=== PATIENT | male | born 1955 | race Caucasian/White ===

== ENCOUNTER 2022-11-13 16:19 | Inpatient (IN) ==
[2022-11-13] MEDS ORDERED: Patient's ALLERGY Info needs ENTERED SCH (16:45)
[2022-11-13] MEDS ORDERED: Patient's HEIGHT &/or WEIGHT Needed SCH (16:45)
--- NOTE | 2022-11-13 16:57 | XRay Report ---
XR chest 1V portable CLINICAL HISTORY: Sepsis TECHNIQUE: Single frontal radiograph of the chest was obtained. Comparison: None available at the time of this dictation. FINDINGS: No lines and tubes are seen. The cardiomediastinal silhouette is normal. The lungs are clear. No evid ence of pleural effusion or pneumothorax. IMPRESSION: No acute abnormalities and in particular no evidence of pneumonia. ACT 112: Negative or not required by law. Electronically signed by: Swapnil Proctor M.D. 11/13/2022 4:56 PM
[2022-11-13] MEDS ORDERED: DAPTOmycin 675 MG in SYRINGE 0 ML IV ONE (17:00)
[2022-11-13] MEDS ORDERED: PIPERACILLIN/TAZOBACTAM 4.5 GM/120 ML BAG IV ONE (17:00)
--- NOTE | 2022-11-13 17:07 | Emergency Department Note ---
Impression & Plan Osteomyelitis, Cellulitis, Leukocytosis, Anemia ED Provider Note NAME: DYLAN MARIE AGE: 67 SEX: M : 1955 ARRIVES VIA: Walk-In INFORMANT: [Patient] ED PROVIDER(S): [Osmel Perez MD] CHIEF COMPLAINT: Wound infection HISTORY OF PRESENT ILLNESS: The patient is a 67-year-old male who states that he had his left fifth toe amputated about 3 years ago. He has had ongoing issues with infection and healing since. The patient is currently seeing an orthopedist from the [facility]. He was on a wound VAC up until 2 weeks ago. He was on antibiotics previously but the last antibiotics prescribed were about a year ago. Patient has had some chills, no fever. He does have pain in the left foot that is moderate in severity. The pain is worse to walk. In the last week, the patient has had increasing drainage, discomfort and pain. He has also noticed some left lower leg erythema. He presents for evaluation. REVIEW OF SYSTEMS: See HPI for pertinent positives and negatives. A total of ten systems were reviewed and were otherwise negative. PMHx/PSHx: See Below SOCIAL HISTORY: See Below. PHYSICAL EXAM: GENERAL: Patient is in no acute distress. HEENT: No acute trauma, normocephalic atraumatic, mucous membranes moist, no nasal congestion, no scleral icterus. NECK: No stridor, no adenopathy, no meningismus, trachea is midline. LUNGS: Clear to auscultation bilaterally, no wheeze, no rhonchi, breath sounds equal. HEART: Without murmurs gallops or rubs, regular rate and rhythm. ABDOMEN: Soft, nontender, bowel sounds positive, no peritonitis. Obese. EXTREMITIES: No cyanosis. The patient does have a left leg edema when compared to the right. There is some erythema and warmth to the distal left leg especially along the lateral aspect. Patient has a large open area to the lateral left foot. There is a foul odor and some dark discharge seen. The wound is around 8 or so centimeters in diameter and does extend quite deep into the tissue of the foot. Surrounding erythema is seen. NEUROLOGIC: Oriented x 3, no acute motor or sensory deficits, no focal weakness. SKIN: No jaundice, no diaphoresis. DIFFERENTIAL DIAGNOSIS: Sepsis, bacteremia, cellulitis, osteomyelitis, DVT, electrolyte imbalance, anemia, MRSA, failed outpatient management, among others. EMERGENCY DEPARTMENT COURSE/PROCEDURES: ECG: Indication was possible sepsis. The ECG shows a normal sinus rhythm with a rate of 85. There is no ST elevation, no PVCs. There is a potential old inferior infarct noted. QTC is 478. Continuous Cardiac Monitoring: An order was placed for continuous cardiac monitoring. The monitor shows a rate of 85 with normal sinus rhythm. Critical Care Note: I have personally spent 42 minutes of critical care time in the direct management of this patient. This includes bedside care, interpretation of diagnostic studies, and testing, discussion with consultants, patient, and family members, and other required patient management activities. This 42 minutes is in excess of all separately billable procedures. MEDICAL DECISION MAKING: There is a moderate leukocytosis, this is consistent with infection. The patient is anemic with a hemoglobin of around 10, I have no old values to use for comparison. Platelet count was normal. No coagulopathy. No renal failure or significant electrolyte abnormality. Lactic acid level was not elevated making severe sepsis less likely. No worrisome liver enzyme elevation. ECG shows a normal sinus rhythm, no ischemia. Cardiac enzyme testing x1 is not consistent with acute cardiac injury. Procalcitonin level is not significantly elevated. COVID test returned negative. Left foot CT does show potential osteomyelitis and cellulitis. Chest x-ray does not show pneumonia or CHF. Left lower extremity ultrasound is currently pending. The patient was treated for the possibility of sepsis/osteomyelitis. He was given daptomycin IV and Zosyn IV. A culture of the drainage from the left foot wound was obtained and sent for analysis. The patient is in need of a hospital stay. He has osteomyelitis, cellulitis. The left foot has a foul odor. He has a leukocytosis. He appears to be failing outpatient management. I did speak with the patient and case management, the on-call hospitalist has been consulted. Past Med/Surg History Medical History Diabetes mellitus Social History Smoking Status: Never smoker Preferred Language: Belizean Feels Safe at Home: Yes Allergies Allergies Allergy/AdvReac Type Severity Reaction Status Date / Time Penicillins Allergy Mild Hives Verified 11/13/22 16:48 Results & Data (ED) Vital Signs Vital Signs - 24 hr 11/13/22 16:22 11/13/22 17:38 11/13/22 17:15 Temperature 37.4 C Temperature Source Temporal Artery Scan Pulse Rate 85 77 Pulse Rate from SpO2 Sensor Respiratory Rate 22 17 Blood Pressure 191/85 H Blood Pressure Mean 120 Pulse Oximetry 95 96 Oxygen Delivery Method Room Air Room Air Sepsis Recent Fever Within 48 Hours No Sepsis New/Unexplained Change in Mental Status No Sepsis Action Taken by Nursing No Action Required 11/13/22 17:20 11/13/22 17:35 Temperature Temperature Source Pulse Rate 82 83 Pulse Rate from SpO2 Sensor 83 Respiratory Rate 25 H 17 Blood Pressure 171/78 H Blood Pressure Mean 109 Pulse Oximetry 96 Oxygen Delivery Method Sepsis Recent Fever Within 48 Hours Sepsis New/Unexplained Change in Mental Status Sepsis Action Taken by [facility] Medications Current Medication List: was personally reviewed by me Laboratory Data Attestation: I reviewed the patient's lab results. Result diagrams: 11/13/22 17:15 11/13/22 17:15 Lab Results 11/13/22 11/13/22 11/13/22 Range/Units 17:15 17:15 17:15 WBC 14.09 H (4.8-10.8) K/ul RBC 3.65 L (4.63-6.08) M/uL Hgb 9.9 L (14.0-18.0) g/dl Hct 30.3 L (40.1-51.0) % MCV 83.0 (80.0-100.0) fL MCH 27.1 (25.0-34.0) pg MCHC 32.7 (32.0-36.0) g/dL RDW Std Deviation 39.5 (36.4-46.3) fL RDW Coeff of Fauzia 13.1 (11.5-14.5) % Plt Count 271 (130-400) K/uL MPV 9.3 L (9.4-12.4) fL Immature Gran % (Auto) 0.6 % Neut % (Auto) 77.5 % Lymph % (Auto) 9.3 % [place] % (Auto) 11.4 % Eos % (Auto) 0.8 % Baso % (Auto) 0.4 % Neut # (Auto) 10.92 H (1.4-6.5) K/uL Lymph # (Auto) 1.31 (1.2-3.4) K/uL [place] # (Auto) 1.61 H (0.24-0.82) K/uL Eos # (Auto) 0.11 (0-0.50) K/uL Baso # (Auto) 0.05 (0-0.2) K/uL Immature Gran # (Auto) 0.09 H (0.00-0.02) K/uL PT 11.1 (9.0-12.0) Seconds INR 1.0 (0.9-1.1) APTT 22.7 (21.0-31.0) Seconds PTT Ratio 0.8 Sodium 138 (136-145) mmol/L Potassium 3.8 (3.5-5.1) mmol/L Chloride 104 (98-107) mmol/L Carbon Dioxide 27 (21-32) mmol/L Anion Gap 7 (3-11) BUN 22 (6-23) mg/dl Creatinine 1.17 (0.6-1.4) mg/dl Est Cr Clr Drug Dosing 97.3 ml/min Est GFR ( Amer) 74.3 ml/min Est GFR (Non-Af Amer) 64.1 ml/min BUN/Creatinine Ratio 18.8 (10-20) Glucose 171 H (70-99(Fasting)) mg/dl Lactate (0.4-2.0) mmol/L Calcium 8.1 L (8.5-10.1) mg/dl Magnesium 1.9 (1.7-2.4) mg/dl Total Bilirubin 1.5 H (0.2-1.0) mg/dl Direct Bilirubin 0.3 H (0-0.2) mg/dl AST 11 L (13-39) U/L ALT 13 (7-52) U/L Alkaline Phosphatase 84 (34-104) U/L Troponin I High Sens 5.8 (0-20) pg/ml Total Protein 7.1 (6.0-8.3) gm/dl Albumin 3.3 L (3.4-5.0) gm/dl Procalcitonin (0-0.5) ng/ml SARS-CoV-2, RNA, NAAT (NEGATIVE) 12/22/22 12/22/22 12/22/22 Range/Units 17:15 17:15 17:15 WBC (4.8-10.8) K/ul RBC (4.63-6.08) M/uL Hgb (14.0-18.0) g/dl Hct (40.1-51.0) % MCV (80.0-100.0) fL MCH (25.0-34.0) pg MCHC (32.0-36.0) g/dL RDW Std Deviation (36.4-46.3) fL RDW Coeff of Fauiza (11.5-14.5) % Plt Count (130-400) K/uL MPV (9.4-12.4) fL Immature Gran % (Auto) % Neut % (Auto) % Lymph % (Auto) % [place] % (Auto) % Eos % (Auto) % Baso % (Auto) % Neut # (Auto) (1.4-6.5) K/uL Lymph # (Auto) (1.2-3.4) K/uL [place] # (Auto) (0.24-0.82) K/uL Eos # (Auto) (0-0.50) K/uL Baso # (Auto) (0-0.2) K/uL Immature Gran # (Auto) (0.00-0.02) K/uL PT (9.0-12.0) Seconds INR (0.9-1.1) APTT (21.0-31.0) Seconds PTT Ratio Sodium (136-145) mmol/L Potassium (3.5-5.1) mmol/L Chloride (98-107) mmol/L Carbon Dioxide (21-32) mmol/L Anion Gap (3-11) BUN (6-23) mg/dl Creatinine (0.6-1.4) mg/dl Est Cr Clr Drug Dosing ml/min Est GFR ( Amer) ml/min Est GFR (Non-Af Amer) ml/min BUN/Creatinine Ratio (10-20) Glucose (70-99(Fasting)) mg/dl Lactate 1.4 (0.4-2.0) mmol/L Calcium (8.5-10.1) mg/dl Magnesium (1.7-2.4) mg/dl Total Bilirubin (0.2-1.0) mg/dl Direct Bilirubin (0-0.2) mg/dl AST (13-39) U/L ALT (7-52) U/L Alkaline Phosphatase (34-104) U/L Troponin I High Sens (0-20) pg/ml Total Protein (6.0-8.3) gm/dl Albumin (3.4-5.0) gm/dl Procalcitonin 0.17 (0-0.5) ng/ml SARS-CoV-2, RNA, NAAT NEGATIVE (NEGATIVE) Administered Medications Discontinued Medications Piperacillin Sod/Tazobactam Sod (Zosyn) 4.5 gm in 120 mls @ 240 mls/hr IV NOW ONE Stop: 11/13/22 17:29 Last Infusion: 11/13/22 17:59 Dose: 0 mls/hr Documented By: Admin: 11/13/22 17:20 Dose: 240 mls/hr Documented By: RONAK Daptomycin 675 mg/ Syringe 13.5 mls @ 6.75 mls/min IV NOW ONE; Protocol Stop: 11/13/22 17:01 Last Admin: 11/13/22 17:19 Dose: 6.75 mls/min Documented By: RONAK Imaging Data Radiologist's Impression: Foot CT 11/13/22 16:39 CT foot LT wo con CLINICAL HISTORY: osteomyelitis TECHNIQUE: Multidetector row helical CT of the left foot was performed without intravenous contrast. Coronal and sagittal reformations were obtained. Automated dose lowering techniques and/or adjustment according to patient size were utilized for this examination. CT DOSE: 211.06 mGy.cm Comparison: None available at the time of this dictation. FINDINGS: Extensive soft tissue swelling and subcutaneous emphysema is seen with an ulcer in the lateral soft tissues of the foot. There is exposed bone at the level of the fifth metatarsal which has been partially resected. Subcutaneous emphysema is seen. Extensive degenerative changes are seen with fragmentation of the fifth metatarsal IMPRESSION: Extensive degenerative changes and postsurgical changes of fifth metatarsal pa rtial resection. There is fragmentation of the remaining portion of the fifth metatarsal. This may be seen in osteomyelitis although there is no focal erosion. Extensive cellulitis and ulcer to the level of the bone in the lateral foot. Subcutaneous emphysema. ACT 112: Negative or not required by law. Electronically signed by: Swapnil Proctor M.D. 11/13/2022 6:09 PM Chest X-Ray 11/13/22 16:40 XR chest 1V portable CLINICAL HISTORY: Sepsis TECHNIQUE: Single frontal radiograph of the chest was obtained. Comparison: None available at the time of this dictation. FINDINGS: No lines and tubes are seen. The cardiomediastinal silhouette is normal. The lungs are clear. No evidence of pleural effusion or pneumothorax. IMPRESSION: No acute abnormalities and in particular no evidence of pneumonia. ACT 112: Negative or not required by law. Electronically signed by: Swapnil Proctor M.D. 11/13/2022 4:56 PM Discharge Plan Visit Data Chief Complaint: Infection, Wound Stated Complaint: LEFT FOOT WOUND, POSSIBLE INFECTION ED Provider: Osmel Perez Discharge Problem: Osteomyelitis, Cellulitis, Leukocytosis, Anemia Patient Disposition: Admitted As Inpatient Condition: Fair Forms Stand Alone Forms: My [facility] Referrals Referrals: Abril Ayers DO [Primary Care Provider] -
[2022-11-13 17:27] LABS: Basophils # (auto) 0.05 K/uL (0-0.2); Basophils % (auto) 0.4 %; Eosinophils # (auto) 0.11 K/uL (0-0.50); Eosinophils % (auto) 0.8 %; Hematocrit (blood only) 30.3 % (40.1-51.0); Hemoglobin 9.9 g/dl (14.0-18.0); Immature Granulocytes # (auto) 0.09 K/uL (0.00-0.02); Immature Granulocytes % (auto) 0.6 %; Lymphocytes # (auto) 1.31 K/uL (1.2-3.4); Lymphocytes % (auto) 9.3 %; Mean Corpuscular Hemoglobin 27.1 pg (25.0-34.0); Mean Corpuscular Hgb Conc 32.7 g/dL (32.0-36.0); Mean Platelet Volume 9.3 fL (9.4-12.4); Monocytes # (auto) 1.61 K/uL (0.24-0.82); Monocytes % (auto) 11.4 %; Neutrophils # (auto) 10.92 K/uL (1.4-6.5); Neutrophils % (auto) 77.5 %; Platelet Count 271 K/uL (130-400); RDW Coefficient of Variation 13.1 % (11.5-14.5); RDW Standard Deviation 39.5 fL (36.4-46.3); Red Blood Count 3.65 M/uL (4.63-6.08); White Blood Count 14.09 K/ul (4.8-10.8)
[2022-11-13 17:40] LABS: Partial Thromboplastin Ratio 0.8; Partial Thromboplastin Time 22.7 Seconds (21.0-31.0); Prothrombin Time 11.1 Seconds (9.0-12.0)
[2022-11-13 17:45] LABS: Albumin Level 3.3 gm/dl (3.4-5.0); BUN Creatinine Ratio 18.8 (10-20); Bilirubin Direct 0.3 mg/dl (0-0.2); Bilirubin,Total 1.5 mg/dl (0.2-1.0); Calcium 8.1 mg/dl (8.5-10.1); Creatinine Clr Calc Pharmacy 97.3 ml/min; Est GFR (African American) 74.3 ml/min; Est GFR (Non-African American) 64.1 ml/min; Magnesium 1.9 mg/dl (1.7-2.4); Potassium 3.8 mmol/L (3.5-5.1); Total Protein 7.1 gm/dl (6.0-8.3)
[2022-11-13 17:51] LABS: Troponin I High Sensitivity 5.8 pg/ml (0-20)
--- NOTE | 2022-11-13 18:12 | CT Scan Report ---
CT foot LT wo con CLINICAL HISTORY: osteomyelitis TECHNIQUE: Multidetector row helical CT of the left foot was performed without intravenous contrast. Coronal and sagittal reformations were obtained. Automated dose lowering techniques and/or adjustment according to patient size were utilized for this examination. CT DOSE: 211.06 mGy.cm Comparison: None available at the time of this dictation. FINDINGS: Extensive soft tissue swelling and subcutaneous emphysema is seen with an ulcer in the lateral soft t issues of the foot. There is exposed bone at the level of the fifth metatarsal which has been partial ly resected. Subcutaneous emphysema is seen. Extensive degenerative changes are seen with fragmentati on of the fifth metatarsal IMPRESSION: Extensive degenerative changes and postsurgical changes of fifth metatarsal partial resection. There is fragmentation of the remaining portion of the fifth metatarsal. This may be seen in osteomyelitis although there is no focal erosion. Extensive cellulitis and ulcer to the level of the bone in the la teral foot. Subcutaneous emphysema. ACT 112: Negative or not required by law. Electronically signed by: Swapnil rPoctor M.D. 11/13/2022 6:09 PM
--- NOTE | 2022-11-13 19:18 | History & Physical Report ---
Date of Service November 13, 2022 Assessment & Plan (1) Cellulitis: Plan: -L foot CT showed extensive cellulitis with possible osteomyelitis and subcutaneous emphysema. -Patient's CT and physical exam is most concerning for a severe cellulitis with osteomyelitis. -Will continue on Daptomycin and Zosyn. Due to h/o uncontrolled DM in the past, want to keep coverage for pseudomonas at this time. -Blood and wound cultures are pending. Though infection does not appear systemic at this time and more localized. -Venous and arterial duplex US of the L LE are pending. -Sed and CRP ordered for the AM. -leukocytosis of 14 in the ED. Will continue to monitor in daily labs. -Tylenol 650mg Q4H prn for pain. -Orthopedic surgery consulted for evaluation (2) Osteomyelitis: Plan: -as above (3) Anemia: Plan: -Hgb 9.9 with MCV 83 in the ED without any previous studies to look at. -iron panel and ferritin pending -Will continue to monitor with morning labs. (4) Diabetes mellitus: Plan: - Patient's home regimen held on admission - Continue BSG checks, sliding-scale insulin, hypoglycemic protocol - Will get HA1C on admission. (5) HTN (hypertension): Plan: -Continue at home amlodipine 10mg QDay, atenolol 50mg QDay, minoxidil 2.5mg BID, and furosemide 40mg QDay (6) HLD (hyperlipidemia): Plan: -Continue home simvastatin 20mg QPM (7) GERD (gastroesophageal reflux disease): Plan: -Continue home omeprazole 20mg QD. (8) BPH (benign prostatic hyperplasia): Plan: Continue home doxazosin 8mg HS, and tamsulosin 0.8mg QD. Plan Fluids: none Nutrition: DM2, NPO after midnight Code status: full code DVT ppx: Lovenox Consults: ortho surgery Dispo: med/surg Thank you for allowing me to participate in the care of your patient. -Dr. Osmel Aleman PGY1 History of Present Illness Chief Complaint: Cellulitis with osteomyelitis of L LE Primary Care Provider: Abril Ayers DO Patient is a 67 y/o male who presents to the hospital with L LE wound. He has been following with [facility] in [place] with wound care about this for the past 3 years since his L fifth toe was amputated due to poorly controlled diabetes. He was on a wound VAC 2 weeks ago. He states over the past week the wound has gotten worse and has become painful and increase in drainage. the pain is worse when ambulating. He denies any antibiotic use for the past year. He denies any fevers, chills, vomiting, or ab pain. He does state that he had a little bit of nausea today for the first time. PMHx: DM2, HTN, HLD, GERD, BPH PSx: Gallbladder removed, L fifth toe amputated (2018?), R toe amputated (2019?) All: penicillin (hives)- doesn't remember them, was younger in the ED: CXR negative, L foot CT showed extensive cellulitis with possible osteomyelitis and subcutaneous emphysema. CBC showed a leukocytics of 14, hgb 9.9, 83 MCV. CMP unremarkable. Normal procal, troponin, Mg, and PT/INR. Wound and blood cultures pending. Allergies Allergy/AdvReac Type Severity Reaction Status Date / Time Penicillins Allergy Mild Hives Verified 11/13/22 16:48 Home Medications Medication Instructions Recorded Confirmed Type amlodipine 10 mg tablet 10 mg PO DAILY 11/13/22 11/13/22 History atenolol 50 mg tablet 50 mg PO DAILY 11/13/22 11/13/22 History doxazosin 4 mg tablet 8 mg PO HS 11/13/22 11/13/22 History furosemide 40 mg tablet 40 mg PO DAILY 11/13/22 11/13/22 History insulin glargine 100 unit/mL (3 70 unit subcut HS 11/13/22 11/13/22 History mL) subcutaneous pen (Lantus Solostar U-100 Insulin) irbesartan 300 mg tablet 300 mg PO DAILY 11/13/22 11/13/22 History metformin 1,000 mg tablet 1,000 mg PO BID 11/13/22 11/13/22 History minoxidil 2.5 mg tablet 2.5 mg PO BID 11/13/22 11/13/22 History omeprazole 20 mg capsule,delayed 20 mg PO DAILY 11/13/22 11/13/22 History release simvastatin 20 mg tablet 20 mg PO HS 11/13/22 11/13/22 History tamsulosin 0.4 mg capsule 0.8 mg PO DAILY 11/13/22 11/13/22 History Past Med/Surg History Medical History BPH (benign prostatic hyperplasia) Diabetes mellitus GERD (gastroesophageal reflux disease) HLD (hyperlipidemia) HTN (hypertension) Surgical History History of amputation of toe Family History (Updated 11/13/22 @ 23:42 by Irma Sandra MD) Other Family history non-contributory Social History Smoking Status: Never smoker Preferred Language: Czech Feels Safe at Home: Yes Review of Systems Review of Systems: All systems reviewed & are unremarkable except as noted in HPI & below Physical Exam Constitutional: WD/WN, vitals as above Eyes: PERRL, conjunctivae normal, anicteric sclerae ENMT: external ear and nose normal, oropharynx normal Respiratory: normal respiratory effort, lungs clear to auscultation Cardiovascular: Rate/Rhythm: regular rate and regular rhythm Gastrointestinal (Abdomen): normal bowel sounds, soft, nontender, no hepatospl enomegaly Musculoskeletal: L LE erythema, warmth, and edematous. Open wound with foul odor and discharge on the distal left lateral footthat extends deep into the skin with surrounding erythema Psychiatric: A+Ox3, euthymic affect Results & Data Results & Data (MN) Vital Signs (Past 12 Hours) Vital Signs Temp Pulse Resp BP Pulse Ox O2 Del Method 11/13/22 17:35 83 17 171/78 H 96 11/13/22 17:20 82 25 H 11/13/22 17:15 77 17 11/13/22 17:38 96 Room Air 11/13/22 16:22 37.4 C 85 22 191/85 H 95 Room Air Supervising Physician Co-Signing Physician Notes I personally examined the patient and verified all woodard points of history and exam, discussed case, and agree with decision making with Dr. Aleman with the following additions/exceptions: S-this patient is a 67-year-old male with history of DM2, with neuropathy, HTN, BPH, hyperlipidemia, obesity, who presents to the ER with worsening redness to the left leg with no large open wound on the left lateral foot that is draining more purulent fluid than usual. He has not been on antibiotics for quite some time but recently had a wound VAC removed from the foot. None of the records from his past medical history are available at time of admission. He denies fevers or chills. He has had some nausea and low appetite but no vomiting. No abdominal pains or diarrhea. Does have some pain but for the most part cannot feel his foot. He denies any chest pains or shortness of breath. History and ROS reviewed otherwise as above O- Vitals reviewed Gen: [AAOx3, obese, NAD] HEENT: Anicteric sclerae, EOMI, CV: RRR no mgr nl S1S2 Pulm: CTAB no wcr has left foot cellulitis and osteomyelitis Abd: +BS soft NT ND no masses or hernias Ext:, 1+ dorsalis pedis pulse on the right, unable to palpate DP pulse on left through the 3+ edema of the foot, breath left lower extremity with 3+ pitting edema, right lower extremity with 2+ woody edema Skin: Dry thickened scaly skin on legs bilaterally, erythema of left entire anterior leg; large open wound left lateral foot approximately 10 cm in diameter, w/necrotic tissue, purulent drainage, exposed bone Neuro: [full strength throughout,decreased sensation to light touch in stocking glove distribution of feet/distal legs bilat Labs, Rads reviewed A/[id number]-old male with history here as above, with left foot OM and cellulitis with large diabetic foot ulcer. Check arterial dopplers, venous doppler LLE Consult Ortho-will likely need foot debridement but await Ortho consult continue broad spectrum antibiotics and follow cultures Resident Activity Tracking Resident Involvement: Resident Care Provided Care Provided: Adult Hospital Medicine (1) Anemia Anemia type: unspecified type Qualified Code(s): D64.9 - Anemia, unspecified (2) Cellulitis Laterality: left Site of cellulitis: extremity Site of cellulitis of extremity: lower extremity Qualified Code(s): L03.116 - Cellulitis of left lower limb (3) Osteomyelitis Laterality: left Osteomyelitis location: foot Osteomyelitis type: unspecified type Qualified Code(s): M86.9 - Osteomyelitis, unspecified
--- NOTE | 2022-11-13 21:03 | Ultrasound Report ---
US venous doppler LE LT CLINICAL HISTORY: swelling TECHNIQUE: Left lower extremity real-time compression venous ultrasound with Color Doppler imaging. U tilizing real-time ultrasonic imaging multiple real time high-resolution ultrasonic images with compr ession and noncompression maneuvers of the deep venous system in addition to color doppler imaging we re performed from the common femoral vein through the proximal calf veins. COMPARISON: Comparison is made to CT left foot 11/13/2022 FINDINGS: Currently there is normal compressibility of the deep venous system from the common femoral vein thro ugh the proximal calf veins. Evaluation of the calf veins is limited by overlying soft tissue swelli ng. Impression: No evidence of deep venous thrombus. ACT 112: Negative or not required by law. Electronically signed by: Swapnil Proctor M.D. 11/13/2022 9:01 PM
--- NOTE | 2022-11-13 21:07 | Ultrasound Report ---
US arterial duplex LE LT CLINICAL HISTORY: L foot cellulitis with osteomyelitis TECHNIQUE: Real-time grayscale and color and spectral Doppler ultrasound imaging of the bilateral low er extremity arteries was performed. Measurements calculated based on NASCET criteria. COMPARISON: None available at the time of this dictation. FINDINGS: LEFT: Common femoral artery: Triphasic waveforms. Peak systolic velocity (PSV) 1 cm/s. Deep femoral artery: Triphasic waveforms. PSV 101 cm/s. Superficial femoral artery: Monophasic waveforms. PSV 337 cm/s. Popliteal artery: Monophasic waveforms. PSV 153 cm/s. Anterior tibial artery: Monophasic waveforms. PSV 282 cm/s. Posterior tibial artery: Monophasic waveforms. PSV 362 cm/s. Peroneal artery: Nonvisualized Dorsalis pedis: Monophasic waveforms. PSV 336 cm/s. Increased velocities are seen throughout the left lower extremity. Monophasic flow extends from the m id superficial femoral artery to the calf. The peroneal artery is not visualized due to soft tissue s welling and body habitus. IMPRESSION: Monophasic waveforms and increased velocities are noted in the superficial femoral artery and the art eries of the calf. Soft tissue swelling is seen. The peroneal artery is not visualized. Findings are compatible with hemodynamically significant peripheral artery disease. ACT 112: Negative or not required by law. Electronically signed by: Swapnil Proctor M.D. 11/13/2022 9:05 PM
[2022-11-13] MEDS ORDERED: GLUCAGON FOR INJ 1 MG VIAL SQ PRN (21:25)
[2022-11-13] MEDS ORDERED: SIMVASTATIN 20 MG TAB PO SCH (21:25)
[2022-11-13] MEDS ORDERED: CARBOHYDRATES FOR HYPOGLYCEMIA PO PRN (21:25)
[2022-11-13] MEDS ORDERED: GLUCOSE 10 TAB/TUBE PO PRN (21:25)
[2022-11-13] MEDS ORDERED: DEXTROSE 50% 50 ML SYRINGE IV PRN (21:25)
[2022-11-13] MEDS ORDERED: GLUCOSE 40% GEL 15 GM TUBE PO PRN (21:25)
[2022-11-13] MEDS ORDERED: ACETAMINOPHEN 325 MG TAB PO PRN (21:25)
[2022-11-13] MEDS ORDERED: INSULIN ASPART PER UNIT SC SCH (21:45)
[2022-11-13] MEDS: DOXAZosin MESYLATE 4 MG TAB PO SCH (22:43)
[2022-11-13] MEDS: minoxidiL 2.5 MG TAB PO SCH (22:43)
[2022-11-13] MEDS: ENOXAPARIN INJ 40 MG/0.4 ML SYR SQ SCH (22:44)
[2022-11-13] MEDS: PIPERACILLIN/TAZOBACTAM 4.5 GM in DEXTROSE 5% 100 ML IV SCH (22:44)
[2022-11-13] MEDS: LANTUS PER UNIT CHARGE SQ SCH (22:50)
--- NOTE | 2022-11-13 23:56 | Billing Data ---
Date of Service November 13, 2022 Coding Level of Care Code 19915 Initial Inpt Care Lvl 3
[2022-11-14] MEDS: PIPERACILLIN/TAZOBACTAM 4.5 GM in DEXTROSE 5% 100 ML IV SCH ×3 (06:07→22:28)
[2022-11-14 06:08] LABS: Appearance Urine Clear (Clear); Bacteria Urine Automated Negative (Negative); Bilirubin Urine Negative (Negative); Blood Urine 2+ (Negative); Color Urine Yellow; Glucose Urine UA Negative (Negative); Ketones Urine Negative (Negative); Leukocyte Esterase Urine Negative (Negative); Nitrite Urine Negative (Negative); Protein Urine 3+ (Negative); Specific Gravity Urine 1.015 (1.000-1.030); Urobilinogen Urine Negative (Negative); pH Urine 5.5 (4.5-7.5)
[2022-11-14] MEDS ORDERED: Nursing to Pharmacy Communication SCH ×2 (06:45→17:00)
[2022-11-14] MEDS: INSULIN ASPART PER UNIT SC SCH ×4 (07:46→20:43)
[2022-11-14] MEDS ORDERED: FUROSEMIDE 40 MG TAB PO SCH (09:00)
[2022-11-14] MEDS ORDERED: IRBESARTAN 150 MG TAB PO SCH (09:00)
[2022-11-14] MEDS: amLODIPine BESYLATE 5 MG TAB PO SCH (10:02)
[2022-11-14] MEDS: minoxidiL 2.5 MG TAB PO SCH ×2 (10:02→20:43)
[2022-11-14] MEDS: PANTOprazole 40 MG TAB PO SCH (10:03)
[2022-11-14] MEDS: TAMSULOSIN HCL 0.4 MG CAP PO SCH (10:03)
[2022-11-14] MEDS: ATENOLOL 50 MG TABLET PO SCH (10:04)
[2022-11-14] MEDS: ENOXAPARIN INJ 40 MG/0.4 ML SYR SQ SCH (10:05)
[2022-11-14] MEDS: LANTUS PER UNIT CHARGE SQ SCH ×2 (10:13→20:46)
[2022-11-14 10:49] LABS: Albumin Globulin Ratio 0.9 (0.9-2); Albumin Level 2.9 gm/dl (3.4-5.0); BUN Creatinine Ratio 13.9 (10-20); Bilirubin,Total 1.5 mg/dl (0.2-1.0); C Reactive Protein 16.67 mg/dl (0-0.5); Calcium 8.4 mg/dl (8.5-10.1); Creatinine Clr Calc Pharmacy 88.9 ml/min; Est GFR (African American) 70.7 ml/min; Globulin 3.4 gm/dl (2.5-4.0); Potassium 3.6 mmol/L (3.5-5.1); Total Protein 6.3 gm/dl (6.0-8.3)
[2022-11-14 11:00] LABS: Ferritin 198.1 ng/ml (8-388)
--- NOTE | 2022-11-14 12:34 | Orthopedic Consultation ---
Date of Service November 14, 2022 Assessment & Plan (1) Osteomyelitis: Plan Patient has been unsuccessfully treated for a diabetic foot ulcer with osteomyelitis for quite a while now. He has had multiple rounds of ABX. Symptoms continue to worsen. He recently had a CT scan which suggested osteomyelitis as well as emphysema of the surrounding soft tissue. Recommend MRI of left lower extremity to quantify oeteomylitis and how advanced it is. Keep NPO after midnight. Continue with IV ABX. Will communicate with Dr. Carson later today for possibility for I&D or amputation tomorrow. History of Present Illness Reason for Consultation: . Requesting Physician: . Attending Physician: Irma Sandra MD Patient is a 67 y/o uncontrolled diabetic who has a history of osteomyelitis as well as intermittent cellulitis of both of his lower extremities. He presented to the ER yesterday for moderate to severe left foot pain, swelling, and purulent drainage from a foot ulcer. He states that he has been seeing a wound care doctor in the [place] area who has been treating him for the diabetic ulcer on his left foot. He has had multiple rounds of antibiotics but his infection keeps coming back. He is sitting comfortably in the hospital bed this afternoon. He does describe slight fever, chills, aches. Allergies Allergy/AdvReac Type Severity Reaction Status Date / Time Penicillins Allergy Mild Hives Verified 11/13/22 16:48 Home Medications Medication Instructions Recorded Confirmed Type amlodipine 10 mg tablet 10 mg PO DAILY 11/13/22 11/13/22 History atenolol 50 mg tablet 50 mg PO DAILY 11/13/22 11/13/22 History doxazosin 4 mg tablet 8 mg PO HS 11/13/22 11/13/22 History furosemide 40 mg tablet 40 mg PO DAILY 11/13/22 11/13/22 History insulin glargine 100 unit/mL (3 70 unit subcut HS 11/13/22 11/13/22 History mL) subcutaneous pen (Lantus Solostar U-100 Insulin) irbesartan 300 mg tablet 300 mg PO DAILY 11/13/22 11/13/22 History metformin 1,000 mg tablet 1,000 mg PO BID 11/13/22 11/13/22 History minoxidil 2.5 mg tablet 2.5 mg PO BID 11/13/22 11/13/22 History omeprazole 20 mg capsule,delayed 20 mg PO DAILY 11/13/22 11/13/22 History release simvastatin 20 mg tablet 20 mg PO HS 11/13/22 11/13/22 History tamsulosin 0.4 mg capsule 0.8 mg PO DAILY 11/13/22 11/13/22 History Past Med/Surg History Medical History BPH (benign prostatic hyperplasia) Diabetes mellitus GERD (gastroesophageal reflux disease) HLD (hyperlipidemia) HTN (hypertension) Surgical History History of amputation of toe Family History Other Family history non-contributory Social History Smoking Status: Never smoker Hx Alcohol Use: Yes Hx Substance Use: Yes Last Used Substance: Hours (ago) Preferred Language: Frisian Lens Blocker Required: No Beliefs That Will Affect Care: None Current Living Situation: Alone Feels Safe at Home: Yes Safety Concerns: Feels Safe At This Time Assistive Devices: Cane, Scooter/Electric Scooter and Walker Review of Systems All systems reviewed & are unremarkable except as noted in HPI & below. Physical Exam Large diabetic foot ulceration of the heel of his left foot. Significant erythema of the lower extremity with cutaneous swelling. Purulent drainage expressed from the ulcer. Results & Data Results & Data Laboratory Results . Diagnostic Findings . PG Care Time/CCT Total # of Minutes Spent Total Time Spent with Patient: Total time spent is greater than 50% in coordination of care (as documented) at patient's floor/unit and/or counseling patient: Coding Level of Care Code 47900 Inpt Consult Level 3 Diagnoses Osteomyelitis M86.9 Laterality: left Osteomyelitis location: foot Osteomyelitis type: unspecified type (1) Osteomyelitis Laterality: left Osteomyelitis location: foot Osteomyelitis type: unspecified type Qualified Code(s): M86.9 - Osteomyelitis, unspecified
[2022-11-14 12:54] LABS: Estimated Average Glucose 151 mg/dl; Hemoglobin A1C 6.9 % (4.5-5.6)
--- NOTE | 2022-11-14 14:28 | XRay Report ---
XR tibia fibula LT 2V CLINICAL HISTORY: assess for osteomyelitis TECHNIQUE: 2 radiographic views of the right leg were obtained. Comparison: None available at the time of this dictation. FINDINGS: No evidence of acute fracture or definite erosions to suggest osteomyelitis. Degenerative changes are seen most prominently in the knee joint. Plantar and Achilles enthesophytes are seen. Soft tissue sw elling is seen. IMPRESSION: Soft tissue swelling without radiographic evidence of osteomyelitis. ACT 112: Negative or not required by law. Electronically signed by: Swapnil Proctor M.D. 11/14/2022 2:27 PM
--- NOTE | 2022-11-14 17:27 | Progress Notes ---
DATE OF NOTE: 11/14/2022 SUBJECTIVE: A 67-year-old gentleman admitted with persistent left heel ulcer with cellulitis. Patirajni ratliff has a 3-year history of persistent left foot ulcer, which has been unresponsive to conservative ca re. He was recently admitted here to the hospital with cellulitis and persistent ulcer. We were con sulted for evaluation. He says this has been present for 3 years. He has had difficulty walking and getting around as a result. It does not really hurt. OBJECTIVE: VITAL SIGNS: Temperature 37.1. Vital signs are stable. GENERAL: Shows a pleasant middle-aged male. He is sitting up in bed and looks quite comfortable. EXTREMITIES: Examination of the left leg reveals a fairly large soft tissue envelope. It is well al igned. He has got a bandage on his foot with a full-thickness ulcer of the foot. There is some surr ounding cellulitis. There is some slight purulent drainage. He can dorsiflex and plantarflex his fo ot appropriately. He does have some chronic venous stasis changes. Some mild cellulitis ascending p roximally. X-RAYS: X-rays of his tib-fib were reviewed from today. It shows some mild arthritis. He has got s ome vascular calcifications. Some diffuse edema. No signs of bone destruction or osteomyelitis of t he tibia or fibula. X-rays of the foot revealed destructive changes. ASSESSMENT: A 67-year-old male with longstanding diabetes and a 3-year history of a left chronic ful l thickness of foot ulcer with underlying infection. This is not healed for 3 years and is not going to heal. Treatment options were explained to the patient including continued suppression with the w ound management, intermittent antibiotics as needed versus a below-knee amputation. PLAN: After extensive discussion, we have decided to proceed with below-knee amputation. The risks and benefits of this procedure were explained to the patient. There is a chance that even a below-kn ee amputation will not heal, but I think it will most likely. In any case, I think it is worth a try considering the energy expended with a difference with above-knee amputation. There is nothing short of an amputation is going to heal this gentleman's leg. I explained that to him and he would like t o proceed. We will plan on doing this tomorrow. Keep him n.p.o. after midnight. Job ID: [id number]
[2022-11-14] MEDS: DAPTOmycin 675 MG in SYRINGE 0 ML IV SCH (18:13)
--- NOTE | 2022-11-14 18:29 | Hospitalist Progress Note ---
Date of Service November 14, 2022 Assessment & Plan (1) Cellulitis: Plan: Presents with 3 years of non-healing left foot wound after 5th toe amputation Had a wound vac and multiple rounds of abx over the years. Here with leukocytosis, no fevers, elevated ESR 80, CRP 16.6 Wound culture growing GNR thus far BCxs-NGTD L foot CT showed extensive cellulitis with possible osteomyelitis and subcutaneous emphysema. Venous Doppler LLE no DVT Arterial Doppler with monophasic flow through SFA Monophasic waveforms and increased velocities are noted in the superficial femoral artery and the arteries of the calf. Soft tissue swelling is seen. The peroneal artery is not visualized. Findings are compatible with hemodynamically significant peripheral artery disease. Patient's CT and physical exam is most concerning for a severe cellulitis with osteomyelitis in setting of PAD No occlusion of LLE arteries so no Vascular eval needed Appreciate Orthopedics consultation -plan for BKA tomorrow -continue on Daptomycin and Zosyn. Due to h/o uncontrolled DM in the past, want to keep coverage for pseudomonas at this time. -check baseline CK in AM while on Dapto -Follow Blood Cxs-NGTD -follow final wound culture-GNR -tylenol for pain -CBC, BMP, ESR, CRP in AM -NPO after midnight for surgery He is medically optimized for this intermediate risk procedure and is at average perioperative CV risk. (2) Osteomyelitis: Plan: -as above (3) Anemia: Plan: -Hgb 9.9 with MCV 83 in the ED without any previous studies for comparison Fe studies show iron deficiency with transferrin saturation low at 10%, ferritin elevated but likely as acute phase reactant -give Venofer 300mg IV daily x 3 days -check hemoccult stool -will need further outpt GI workup after recovery from amputation if has not already had this ie EGD,colonoscopy (4) Diabetes mellitus: Plan: - Patient's home regimen held on admission - Continue BSG checks, sliding-scale insulin, hypoglycemic protocol glucose here well controlled HgbA1C 6.9% (5) HTN (hypertension): Plan: -Continue home amlodipine 10mg QDay, atenolol 50mg QDay, minoxidil 2.5mg BID -hold furosemide 40mg QDay and irbesartan prior to surgery and restart if renal function and BP allow (6) HLD (hyperlipidemia): Plan: -hold home simvastatin 20mg QPM while on Daptomycin (7) GERD (gastroesophageal reflux disease): Plan: -Continue PPI (8) BPH (benign prostatic hyperplasia): Plan: Continue home doxazosin 8mg HS, and tamsulosin 0.8mg QD. monitor for urinary retention (9) PAD (peripheral artery disease): Plan: as noted on arterial Doppler secondary to DMII not a smoker advise higher intensity statin when able to resume statin (when off Daptomycin) and start aspirin 81mg daily Plan DVT proph-add Lovenox after procedure Dispo-continued stay on med surg Admission and Anticipated Discharge Date Admission Date: November 13, 2022 Subjective Pt denies pain. Denies CP, SOB, abd pain, nausea. No BM today but reports he didn't eat all day until dinner. He was advised to have a BKA done by Ortho and is accepting of this but is in a bit of shock. He agrees it is the right thing to do as his foot has not healed now for 3 years. Review of Systems Review of Systems: All systems reviewed & are unremarkable except as noted in HPI & below Physical Exam Constitutional: WD/WN, vitals as above Eyes: + anicteric sclerae ENMT: Ears: no hearing impairment Neck: trachea midline, no thyromegaly Respiratory: normal respiratory effort, lungs clear to auscultation Cardiovascular: Rate/Rhythm: regular rate and regular rhythm Heart Sounds: no murmur Vessels: dorsalis pedis pulses present (weak but palpable bilat) Extremities: + edema (3+ woody edema left leg,2+ right leg) Chest (Breasts): Chest: normal inspection of chest Gastrointestinal (Abdomen): normal bowel sounds, soft, nontender, no hepatosplenomegaly Musculoskeletal: Extremities: + extremities abnormal to inspection (R 2nd toe absent;L foot in dressing not removed today) and no cyanosis Skin: + erythema (mild, left anterior leg) Neurologic: moves all extremities and awake; no focal motor deficits Psychiatric: A+Ox3, euthymic affect Results & Data Results & Data ([facility]) Vital Signs (Past 12 Hours) Vital Signs Temp Pulse Resp BP BP Pulse Ox O2 Del Method 11/14/22 15:28 37.1 C 67 19 166/77 H 96 Room Air 11/14/22 10:09 171/78 H 11/14/22 07:47 37.1 C 71 20 168/89 H 96 Room Air Laboratory Results 11/14/22 11/14/22 11/14/22 Range/Units Unknown 17:51 17:35 ESR (0-20) mm/hr Sodium (136-145) mmol/L Potassium (3.5-5.1) mmol/L Chloride (98-107) mmol/L Carbon Dioxide (21-32) mmol/L Anion Gap (3-11) BUN (6-23) mg/dl Creatinine (0.6-1.4) mg/dl Est Cr Clr Drug Dosing ml/min Est GFR ( Amer) ml/min Est GFR (Non-Af Amer) ml/min BUN/Creatinine Ratio (10-20) Glucose (70-99(Fasting)) mg/dl POC Glucose 149 H (70-99) mg/dl Estimat Average Glucose mg/dl Hemoglobin A1c (4.5-5.6) % Calcium (8.5-10.1) mg/dl Iron (35-175) mcg/dl TIBC (250-450) mcg/dl Unsaturated IBC (155-355) mcg/dl Transferrin % Sat (20-50) % Ferritin (8-388) ng/ml Total Bilirubin (0.2-1.0) mg/dl AST (13-39) U/L ALT (7-52) U/L Alkaline Phosphatase (34-104) U/L C-Reactive Protein (0-0.5) mg/dl Total Protein (6.0-8.3) gm/dl Albumin (3.4-5.0) gm/dl Globulin (2.5-4.0) gm/dl Albumin/Globulin Ratio (0.9-2) Urine Color Yellow Urine Appearance Clear (Clear) Urine pH 5.5 (4.5-7.5) Ur Specific [place] 1.015 (1.000-1.030) Urine Protein 3+ H (Negative) Urine Glucose (UA) Negative (Negative) Urine Ketones Negative (Negative) Urine Blood 2+ H (Negative) Urine Nitrite Negative (Negative) Urine Bilirubin Negative (Negative) Urine Urobilinogen Negative (Negative) Ur Leukocyte Esterase Negative (Negative) Urine WBC (Auto) 1-5 (0-5) /hpf Urine RBC (Auto) 5-10 H (0-4) /hpf U Hyaline Cast (Auto) 1-5 (0-5) /lpf U Epithel Cells (Auto) 5-10 H (0-5) /lpf Urine Bacteria (Auto) Negative (Negative) Hepatitis C Ab (EIA) Hep C Ab Signal/Cutoff Blood Type Pending Antibody Screen Pending 11/14/22 11/14/22 11/14/22 Range/Units 12:32 09:41 09:41 ESR (0-20) mm/hr Sodium (136-145) mmol/L Potassium (3.5-5.1) mmol/L Chloride (98-107) mmol/L Carbon Dioxide (21-32) mmol/L Anion Gap (3-11) BUN (6-23) mg/dl Creatinine (0.6-1.4) mg/dl Est Cr Clr Drug Dosing ml/min Est GFR ( Amer) ml/min Est GFR (Non-Af Amer) ml/min BUN/Creatinine Ratio (10-20) Glucose (70-99(Fasting)) mg/dl POC Glucose 137 H (70-99) mg/dl Estimat Average Glucose 151 mg/dl Hemoglobin A1c 6.9 H (4.5-5.6) % Calcium (8.5-10.1) mg/dl Iron (35-175) mcg/dl TIBC (250-450) mcg/dl Unsaturated IBC (155-355) mcg/dl Transferrin % Sat (20-50) % Ferritin (8-388) ng/ml Total Bilirubin (0.2-1.0) mg/dl AST (13-39) U/L ALT (7-52) U/L Alkaline Phosphatase (34-104) U/L C-Reactive Protein (0-0.5) mg/dl Total Protein (6.0-8.3) gm/dl Albumin (3.4-5.0) gm/dl Globulin (2.5-4.0) gm/dl Albumin/Globulin Ratio (0.9-2) Urine Color Urine Appearance (Clear) Urine pH (4.5-7.5) Ur Specific [place] (1.000-1.030) Urine Protein (Negative) Urine Glucose (UA) (Negative) Urine Ketones (Negative) Urine Blood (Negative) Urine Nitrite (Negative) Urine Bilirubin (Negative) Urine Urobilinogen (Negative) Ur Leukocyte Esterase (Negative) Urine WBC (Auto) (0-5) /hpf Urine RBC (Auto) (0-4) /hpf U Hyaline Cast (Auto) (0-5) /lpf U Epithel Cells (Auto) (0-5) /lpf Urine Bacteria (Auto) (Negative) Hepatitis C Ab (EIA) Pending Hep C Ab Signal/Cutoff Pending Blood Type Antibody Screen 11/14/22 11/14/22 11/14/22 Range/Units 09:41 09:41 05:45 ESR 80 H (0-20) mm/hr Sodium 139 (136-145) mmol/L Potassium 3.6 (3.5-5.1) mmol/L Chloride 106 (98-107) mmol/L Carbon Dioxide 28 (21-32) mmol/L Anion Gap 5 (3-11) BUN 17 (6-23) mg/dl Creatinine 1.22 (0.6-1.4) mg/dl Est Cr Clr Drug Dosing 88.9 ml/min Est GFR ( Amer) 70.7 ml/min Est GFR (Non-Af Amer) 61.0 ml/min BUN/Creatinine Ratio 13.9 (10-20) Glucose 125 H (70-99(Fasting)) mg/dl POC Glucose 139 H (70-99) mg/dl Estimat Average Glucose mg/dl Hemoglobin A1c (4.5-5.6) % Calcium 8.4 L (8.5-10.1) mg/dl Iron 16 L (35-175) mcg/dl TIBC 161 L (250-450) mcg/dl Unsaturated IBC 145 L (155-355) mcg/dl Transferrin % Sat 10 L (20-50) % Ferritin 198.1 (8-388) ng/ml Total Bilirubin 1.5 H (0.2-1.0) mg/dl AST 12 L (13-39) U/L ALT 12 (7-52) U/L Alkaline Phosphatase 77 (34-104) U/L C-Reactive Protein 16.67 H (0-0.5) mg/dl Total Protein 6.3 (6.0-8.3) gm/dl Albumin 2.9 L (3.4-5.0) gm/dl Globulin 3.4 (2.5-4.0) gm/dl Albumin/Globulin Ratio 0.9 (0.9-2) Urine Color Urine Appearance (Clear) Urine pH (4.5-7.5) Ur Specific [place] (1.000-1.030) Urine Protein (Negative) Urine Glucose (UA) (Negative) Urine Ketones (Negative) Urine Blood (Negative) Urine Nitrite (Negative) Urine Bilirubin (Negative) Urine Urobilinogen (Negative) Ur Leukocyte Esterase (Negative) Urine WBC (Auto) (0-5) /hpf Urine RBC (Auto) (0-4) /hpf U Hyaline Cast (Auto) (0-5) /lpf U Epithel Cells (Auto) (0-5) /lpf Urine Bacteria (Auto) (Negative) Hepatitis C Ab (EIA) Hep C Ab Signal/Cutoff Blood Type Antibody Screen 11/13/22 Range/Units 21:25 ESR (0-20) mm/hr Sodium (136-145) mmol/L Potassium (3.5-5.1) mmol/L Chloride (98-107) mmol/L Carbon Dioxide (21-32) mmol/L Anion Gap (3-11) BUN (6-23) mg/dl Creatinine (0.6-1.4) mg/dl Est Cr Clr Drug Dosing ml/min Est GFR ( Amer) ml/min Est GFR (Non-Af Amer) ml/min BUN/Creatinine Ratio (10-20) Glucose (70-99(Fasting)) mg/dl POC Glucose 161 H (70-99) mg/dl Estimat Average Glucose mg/dl Hemoglobin A1c (4.5-5.6) % Calcium (8.5-10.1) mg/dl Iron (35-175) mcg/dl TIBC (250-450) mcg/dl Unsaturated IBC (155-355) mcg/dl Transferrin % Sat (20-50) % Ferritin (8-388) ng/ml Total Bilirubin (0.2-1.0) mg/dl AST (13-39) U/L ALT (7-52) U/L Alkaline Phosphatase (34-104) U/L C-Reactive Protein (0-0.5) mg/dl Total Protein (6.0-8.3) gm/dl Albumin (3.4-5.0) gm/dl Globulin (2.5-4.0) gm/dl Albumin/Globulin Ratio (0.9-2) Urine Color Urine Appearance (Clear) Urine pH (4.5-7.5) Ur Specific [place] (1.000-1.030) Urine Protein (Negative) Urine Glucose (UA) (Negative) Urine Ketones (Negative) Urine Blood (Negative) Urine Nitrite (Negative) Urine Bilirubin (Negative) Urine Urobilinogen (Negative) Ur Leukocyte Esterase (Negative) Urine WBC (Auto) (0-5) /hpf Urine RBC (Auto) (0-4) /hpf U Hyaline Cast (Auto) (0-5) /lpf U Epithel Cells (Auto) (0-5) /lpf Urine Bacteria (Auto) (Negative) Hepatitis C Ab (EIA) Hep C Ab Signal/Cutoff Blood Type Antibody Screen Diagnostic Findings Venous Doppler Study 11/13/22 17:07 US venous doppler LE LT CLINICAL HISTORY: swelling TECHNIQUE: Left lower extremity real-time compression venous ultrasound with Color Doppler imaging. Utilizing real-time ultrasonic imaging multiple real time high-resolution ultrasonic images with compression and noncompression maneuvers of the deep venous system in addition to color doppler imaging were performed from the common femoral vein through the proximal calf veins. COMPARISON: Comparison is made to CT left foot 11/13/2022 FINDINGS: Currently there is normal compressibility of the deep venous system from the common femoral vein through the proximal calf veins. Evaluation of the calf veins is limited by overlying soft tissue swelling. Impression: No evidence of deep venous thrombus. ACT 112: Negative or not required by law. Electronically signed by: Swapnil Proctor M.D. 11/13/2022 9:01 PM Duplex Scan Lower Extremity Artery 11/13/22 19:41 US arterial duplex LE LT CLINICAL HISTORY: L foot cellulitis with osteomyelitis TECHNIQUE: Real-time grayscale and color and spectral Doppler ultrasound imaging of the bilateral lower extremity arteries was performed. Measurements calculated based on NASCET criteria. COMPARISON: None available at the time of this dictation. FINDINGS: LEFT: Common femoral artery: Triphasic waveforms. Peak systolic velocity (PSV) 1 cm/s. Deep femoral artery: Triphasic waveforms. PSV 101 cm/s. Superficial femoral artery: Monophasic waveforms. PSV 337 cm/s. Popliteal artery: Monophasic waveforms. PSV 153 cm/s. Anterior tibial artery: Monophasic waveforms. PSV 282 cm/s. Posterior tibial artery: Monophasic waveforms. PSV 362 cm/s. Peroneal artery: Nonvisualized Dorsalis pedis: Monophasic waveforms. PSV 336 cm/s. Increased velocities are seen throughout the left lower extremity. Monophasic flow extends from the mid superficial femoral artery to the calf. The peroneal artery is not visualized due to soft tissue swelling and body habitus. IMPRESSION: Monophasic waveforms and increased velocities are noted in the superficial femoral artery and the arteries of the calf. Soft tissue swelling is seen. The peroneal artery is not visualized. Findings are compatible with hemodynamically significant peripheral artery disease. ACT 112: Negative or not required by law. Electronically signed by: Swapnil Proctor M.D. 11/13/2022 9:05 PM Tibia/Fibula X-Ray 11/14/22 13:44 XR tibia fibula LT 2V CLINICAL HISTORY: assess for osteomyelitis TECHNIQUE: 2 radiographic views of the right leg were obtained. Comparison: None available at the time of this dictation. FINDINGS: No evidence of acute fracture or definite erosions to suggest osteomyelitis. Degenerative changes are seen most prominently in the knee joint. Plantar and Achilles enthesophytes are seen. Soft tissue swelling is seen. IMPRESSION: Soft tissue swelling without radiographic evidence of osteomyelitis. ACT 112: Negative or not required by law. Electronically signed by: Swapnil Proctor M.D. 11/14/2022 2:27 PM PG Care Time/CCT Total # of Minutes Spent Total Time Spent with Patient: Total time spent is greater than 50% in coordination of care (as documented) at patient's floor/unit and/or counseling patient: Coding Level of Care Code 14694 Subseq Hosp Care Lvl 3 Diagnoses Cellulitis L03.116 Laterality: left Site of cellulitis: extremity Site of cellulitis of extremity: lower extremity Osteomyelitis M86.9 Laterality: left Osteomyelitis location: foot Osteomyelitis type: unspecified type Anemia D64.9 Anemia type: unspecified type Diabetes mellitus E11.9 HTN (hypertension) I10 HLD (hyperlipidemia) E78.5 GERD (gastroesophageal reflux disease) K21.9 BPH (benign prostatic hyperplasia) N40.0 PAD (peripheral artery disease) I73.9 (1) Cellulitis Laterality: left Site of cellulitis: extremity Site of cellulitis of extremity: lower extremity Qualified Code(s): L03.116 - Cellulitis of left lower limb (2) Osteomyelitis Laterality: left Osteomyelitis location: foot Osteomyelitis type: unspecified type Qualified Code(s): M86.9 - Osteomyelitis, unspecified (3) Anemia Anemia type: unspecified type Qualified Code(s): D64.9 - Anemia, unspecified
[2022-11-14] MEDS: IRON SUCROSE 300 MG in SODIUM CHLORIDE 0.9% 250 ML IV SCH (20:41)
[2022-11-14] MEDS: DOXAZosin MESYLATE 4 MG TAB PO SCH (20:42)
[2022-11-15] MEDS: PIPERACILLIN/TAZOBACTAM 4.5 GM in DEXTROSE 5% 100 ML IV SCH ×3 (06:07→21:47)
[2022-11-15] MEDS: INSULIN ASPART PER UNIT SC SCH ×4 (06:07→21:30)
--- NOTE | 2022-11-15 06:33 | Electrocardiogram Report ---
Test Reason : Blood Pressure : / mmHG Vent. Rate : 085 BPM Atrial Rate : 085 BPM P-R Int : 160 ms QRS Dur : 112 ms QT Int : 402 ms P-R-T Axes : 000 188 128 degrees QTc Int : 478 ms Normal sinus rhythm Right superior axis deviation Inferior infarct , age undetermined Suspect Limb lead reversal Abnormal ECG No previous ECGs available Confirmed by Hermann Pardo ([id number]) on 11/15/2022 6:33:07 AM Referred By: REFERRED SELF Confirmed By:Hermann Pardo
[2022-11-15] MEDS ORDERED: ONDANSETRON INJ 2 MG/ML 2 ML VIAL ONE ×2 (07:14→11:05)
[2022-11-15] MEDS ORDERED: DEXAMETHASONE SOD INJ 4 MG/ML VIAL ONE ×2 (07:14→09:36)
[2022-11-15] MEDS ORDERED: fentaNYL citrate 100 MCG/2 ML VIAL ONE ×2 (07:14→11:27)
[2022-11-15] MEDS ORDERED: MIDAZOLAM HCL 1 MG/ML 2ML VIAL ONE (07:14)
[2022-11-15] MEDS ORDERED: PROPOFOL IV EMULSION 10 MG/ML 20 ML VIAL IV ONE (07:14)
--- NOTE | 2022-11-15 07:28 | Anesthesiology Consultation ---
Date of Service November 15, 2022 Assessment & Plan (1) Encounter for pre-operative examination: Chart Review Chart Review: Acceptable Risk for Surgery History Surgery Operation Date: 11/15/22 09:30 Proposed Procedures p Left Below Knee Amputation - Hill Carson MD Height/Weight Height: 6 ft 2 in Weight: 144.2 kg Allergies Allergy/AdvReac Type Severity Reaction Status Date / Time Penicillins Allergy Mild Hives Verified 11/13/22 16:48 Medications Home Medications Medication Instructions Recorded Confirmed Last Taken amlodipine 10 mg tablet 10 mg PO DAILY 11/13/22 11/13/22 Unknown atenolol 50 mg tablet 50 mg PO DAILY 11/13/22 11/13/22 Unknown doxazosin 4 mg tablet 8 mg PO HS 11/13/22 11/13/22 Unknown furosemide 40 mg tablet 40 mg PO DAILY 11/13/22 11/13/22 Unknown insulin glargine 100 unit/mL (3 70 unit subcut HS 11/13/22 11/13/22 Unknown mL) subcutaneous pen (Lantus Solostar U-100 Insulin) irbesartan 300 mg tablet 300 mg PO DAILY 11/13/22 11/13/22 Unknown metformin 1,000 mg tablet 1,000 mg PO BID 11/13/22 11/13/22 Unknown minoxidil 2.5 mg tablet 2.5 mg PO BID 11/13/22 11/13/22 Unknown omeprazole 20 mg capsule,delayed 20 mg PO DAILY 11/13/22 11/13/22 Unknown release simvastatin 20 mg tablet 20 mg PO HS 11/13/22 11/13/22 Unknown tamsulosin 0.4 mg capsule 0.8 mg PO DAILY 11/13/22 11/13/22 Unknown Active Medications Generic Name Dose Route Start Last Admin Trade Name Freq PRN Reason Stop Dose Admin Amlodipine Besylate 10 mg 11/14/22 09:00 11/14/22 10:02 Amlodipine Besylate 5 Mg Tab PO 12/14/22 08:59 10 mg DAILY TAMEKA Administration Atenolol 50 mg 11/14/22 09:00 11/14/22 10:04 Atenolol 50 Mg Tablet PO 12/14/22 08:59 50 mg DAILY TAMEKA Administration Doxazosin Mesylate 8 mg 11/13/22 21:25 11/14/22 20:42 Doxazosin Mesylate 4 Mg Tab PO 12/13/22 21:24 8 mg HS TAMEKA Administration Piperacillin Sod/Tazobactam 120 mls @ 30 mls/hr 11/13/22 22:00 11/15/22 06:07 Sod 4.5 gm/ Dextrose IV 12/25/22 21:59 30 mls/hr Q8H TAMEKA Administration Protocol Daptomycin 675 mg/ Syringe 13.5 mls @ 6.75 mls/min 11/14/22 17:00 11/14/22 18:13 IV 12/26/22 16:59 6.75 mls/min Q24H TAMEKA Administration Protocol Iron Sucrose 300 mg/ Sodium 265 mls @ 176.667 mls/hr 11/14/22 19:30 11/14/22 23:00 Chloride IV 11/16/22 20:59 Infused Q24H TAMEKA Infusion Insulin Aspart 0 units 11/15/22 06:00 11/15/22 06:07 Insulin Aspart Per Unit SC 12/15/22 05:59 Not Given Q6 TAMEKA Insulin Glargine 14 units 11/13/22 21:45 11/14/22 20:46 Lantus Per Unit Charge SQ 12/13/22 21:44 14 units BID TAMEKA Administration Minoxidil 2.5 mg 11/13/22 21:25 11/14/22 20:43 Minoxidil 2.5 Mg Tab PO 12/13/22 21:24 2.5 mg BID TAMEKA Administration Pantoprazole Sodium 40 mg 11/14/22 09:00 11/14/22 10:03 Pantoprazole 40 Mg Tab PO 12/14/22 08:59 40 mg DAILY TAMEKA Administration Protocol Tamsulosin HCl 0.8 mg 11/14/22 09:00 11/14/22 10:03 Tamsulosin Hcl 0.4 Mg Cap PO 12/14/22 08:59 0.8 mg DAILY TAMEKA Administration Past Medical History Medical History (Updated 11/15/22 @ 07:28 by Jordy Christina MD) Anemia BPH (benign prostatic hyperplasia) Diabetes mellitus GERD (gastroesophageal reflux disease) HLD (hyperlipidemia) HTN (hypertension) Obesity PAD (peripheral artery disease) Past Family History Family History Other Family history non-contributory Past Surgical History Surgical History History of amputation of toe Hx laparoscopic cholecystectomy Social History Smoking Status: Never smoker Hx Alcohol Use: Yes alcohol intake frequency: holidays/special occasions only Hx Substance Use: Yes substance use type: marijuana Last Used Substance: Hours (ago) Physical Exam Vital Signs Last Vital Signs Temp 37.0 C 11/14/22 21:52 Pulse 69 11/14/22 21:52 Resp 19 11/14/22 21:52 BP 159/73 H 11/14/22 21:52 Pulse Ox 93 11/14/22 21:52 O2 Del Method 11/14/22 21:52 Testing Laboratory Results 11/13/22 17:15 11/14/22 09:41 PT 11.1 Seconds (9.0-12.0) 11/13/22 17:15 INR 1.0 (0.9-1.1) 11/13/22 17:15 APTT 22.7 Seconds (21.0-31.0) 11/13/22 17:15 Hemoglobin A1c 6.9 % (4.5-5.6) H 11/14/22 09:41 Urine Color Yellow 11/14/22 Unknown Urine Appearance Clear (Clear) 11/14/22 Unknown Urine pH 5.5 (4.5-7.5) 11/14/22 Unknown Ur Specific [place] 1.015 (1.000-1.030) 11/14/22 Unknown Urine Protein 3+ (Negative) H 11/14/22 Unknown Urine Glucose (UA) Negative (Negative) 11/14/22 Unknown Urine Ketones Negative (Negative) 11/14/22 Unknown Urine Nitrite Negative (Negative) 11/14/22 Unknown Ur Leukocyte Esterase Negative (Negative) 11/14/22 Unknown Urine WBC (Auto) 1-5 /hpf (0-5) 11/14/22 Unknown Urine RBC (Auto) 5-10 /hpf (0-4) H 11/14/22 Unknown U Hyaline Cast (Auto) 1-5 /lpf (0-5) 11/14/22 Unknown U Epithel Cells (Auto) 5-10 /lpf (0-5) H 11/14/22 Unknown Urine Bacteria (Auto) Negative (Negative) 11/14/22 Unknown Blood Type A Positive 11/14/22 17:51 Antibody Screen NEGATIVE 11/14/22 17:51 11/13/22 16:43 Gram Stain - Final Foot Aerobic and Anaerobic Culture - Preliminary Proteus mirabilis 11/13/22 17:58 Aerobic Blood Culture - Preliminary Blood No growth in Aerobic bottle after 24 hours. Anaerobic Blood Culture - Preliminary No growth in Anaerobic bottle after 24 hours. 11/13/22 17:15 Aerobic Blood Culture - Preliminary Blood No growth in Aerobic bottle after 24 hours. Anaerobic Blood Culture - Preliminary No growth in Anaerobic bottle after 24 hours. 11/15/22 11/14/22 05:55 20:33 POC Glucose 108 H 130 H Electrocardiogram Findings: + NSR @ (85) and + CO (inferior - age undetermined) Chest X-Ray Date: 11/13/22 Findings: + NAD
[2022-11-15] MEDS: PANTOprazole 40 MG TAB PO SCH (07:48)
[2022-11-15] MEDS: LANTUS PER UNIT CHARGE SQ SCH ×2 (07:48→21:29)
[2022-11-15] MEDS: amLODIPine BESYLATE 5 MG TAB PO SCH (07:49)
[2022-11-15] MEDS: ATENOLOL 50 MG TABLET PO SCH (07:49)
[2022-11-15] MEDS: TAMSULOSIN HCL 0.4 MG CAP PO SCH (07:49)
[2022-11-15] MEDS: minoxidiL 2.5 MG TAB PO SCH ×2 (07:50→21:38)
[2022-11-15 08:52] LABS: Basophils # (auto) 0.05 K/uL (0-0.2); Basophils % (auto) 0.6 %; Eosinophils % (auto) 6.7 %; Hematocrit (blood only) 27.6 % (40.1-51.0); Immature Granulocytes # (auto) 0.04 K/uL (0.00-0.02); Immature Granulocytes % (auto) 0.4 %; Lymphocytes # (auto) 1.14 K/uL (1.2-3.4); Lymphocytes % (auto) 12.8 %; Mean Corpuscular Hemoglobin 27.4 pg (25.0-34.0); Mean Corpuscular Hgb Conc 32.6 g/dL (32.0-36.0); Mean Corpuscular Volume 84.1 fL (80.0-100.0); Mean Platelet Volume 9.2 fL (9.4-12.4); Monocytes # (auto) 0.95 K/uL (0.24-0.82); Monocytes % (auto) 10.7 %; Neutrophils # (auto) 6.14 K/uL (1.4-6.5); Neutrophils % (auto) 68.8 %; Platelet Count 256 K/uL (130-400); RDW Standard Deviation 40.1 fL (36.4-46.3); Red Blood Count 3.28 M/uL (4.63-6.08); White Blood Count 8.92 K/ul (4.8-10.8)
[2022-11-15] MEDS ORDERED: ASPIRIN 81 MG ECTAB PO SCH (09:00)
[2022-11-15 09:21] LABS: Albumin Globulin Ratio 0.8 (0.9-2); BUN Creatinine Ratio 13.8 (10-20); Bilirubin,Total 1.1 mg/dl (0.2-1.0); C Reactive Protein 13.96 mg/dl (0-0.5); Calcium 8.2 mg/dl (8.5-10.1); Creatinine Clr Calc Pharmacy 83.5 ml/min; Est GFR (African American) 65.4 ml/min; Est GFR (Non-African American) 56.5 ml/min; Globulin 3.6 gm/dl (2.5-4.0); Potassium 3.5 mmol/L (3.5-5.1); Total Protein 6.6 gm/dl (6.0-8.3)
--- NOTE | 2022-11-15 09:32 | History & Physical Bridge Note ---
Date of Service November 15, 2022 History & Physical Bridge Note I have examined the patient, reviewed the History & Physical and in the interval since the performance of the History & Physical I have noted the following changes of clinical significance: no changes noted
[2022-11-15] MEDS ORDERED: ROCURONIUM BROMIDE 10 MG/ML 5 ML VIAL IV ONE (09:36)
[2022-11-15] MEDS ORDERED: ATROPINE SULFATE 0.1 MG/ML 10ML SYR IV PRN (09:37)
[2022-11-15] MEDS ORDERED: KETOROLAC 30 MG/ML VIAL IV PRN (09:37)
[2022-11-15] MEDS ORDERED: ONDANSETRON INJ 2 MG/ML 2 ML VIAL IV PRN ×2 (09:37→13:57)
[2022-11-15] MEDS ORDERED: BUPIVACAINE/EPINEPHRINE 0.5% MPF 1:200,000 30 ML VIAL ONE (09:50)
[2022-11-15] MEDS ORDERED: LIDOCAINE 2% MPF LOCAL 5 ML VIAL INFIL ONE (10:43)
[2022-11-15] MEDS ORDERED: GLYCOPYRROLATE 0.2 MG/ML VIAL ONE (11:05)
[2022-11-15] MEDS ORDERED: LARYING-O-JET KIT (LTA) ONE (11:05)
[2022-11-15] MEDS ORDERED: NEOSTIGMINE METHYLSULFATE 1 MG/ML 10ML VIAL ONE (11:05)
--- NOTE | 2022-11-15 12:25 | Operative Report ---
PG Post Operative Report Pre & Post Diagnosis Operation Date: 11/15/22 09:30 Pre-Op Diagnosis: Left chronic full-thickness diabetic foot ulcer with underlying infection and osteomyelitis. Post-Op Diagnosis: Left chronic full-thickness diabetic foot ulcer with underlying infection osteomyelitis. I identified the patient and participated in the time-out.: Yes Procedure Operation Date: 11/15/22 09:30 Actual Procedures p Left Below Knee Amputation(Left) - Hill Carson MD Surgeon Hill Carson MD Disc Pad Grinding Machine Feeder Michael Garner PA-C Estimated Blood Loss 200 Findings Consistent with Post-Op Diagnosis Operative findings revealed the diffuse edema in his lower extremity. He had a full-thickness diabetic foot ulcer that went down to the bone. There is obvious purulence and odor associated with this. Obvious gross deep bone and soft tissue infection. Fluids 500 cc Specimens Left foot and leg sent for pathology Drains None Anesthesia Type General Complications none Disposition Accompanied Patient To Recovery: No Indications Patient 67-year-old long-term diabetic was had a 3-year history of a chronic persistent left diabetic foot ulcer which would not heal. He was admitted for infection with an elevated white count and cellulitis and persistent purulent drainage. There is no chance of ever healing this wound. We discussed treatment options including further conservative care versus surgical intervention which would be below-knee amputation. He elected proceed with a below-knee amputation. I did tell him there is no guarantee that this will heal at this level but gives him his best chance of getting a healed wound and a functional leg. Description of Procedure The patient was taken the operating, identified, placed on the operating table supine position protectors were properly padded. Patient has been feeling IV antibiotics on the floor. A general anesthetic was implemented. A left thigh turn was then placed. Left lower extremities then scrubbed with Hibiclens and then prepped with ChloraPrep and draped in usual sterile fashion. The left leg was elevated exsanguinated with use of an Esmarch and the tourniquet was set at 300 mmHg. A fishmouth incision was made with designed for the final bone cut about 15 cm below the joint line. Full-thickness flaps were developed anterior and posteriorly for a distance of about 8 to 9 cm. Sharp dissection was carried directly down through the skin through the subcutaneous tissue directly down to the fascia. The anterior fascia was then elevated off the proximal tibia in the anterior compartment. I then cauterized the muscle in the anterior compartment about a half a centimeter distal to the proposed incision cut for the tibia. I exposed the distal fibula. This was resected about a centimeter and a half above the proposed tibial resection line. The anterior tibial artery and deep peroneal nerve were identified. The nerve was cut and allowed to retract. The artery and vein were then suture-ligated with a two 3-0 silk sutures. I then cut through the posterior compartment. I then used a saw to resect the tibia. We beveled this anteriorly. I then cut through the deep posterior compartment. The posterior tibial vessels were identified and suture-ligated with 306 silk suture and allowed to retract up. 2 sutures were placed. The tibial nerve was identified. Was cut and allowed to retract. The leg was then carefully removed and removed from the table. I then used the amputation knife to a tail of the posterior flap to allow for appropriate closure. We irrigated the wound. I then let the tourniquet down for turn time 47 minutes. Hemostasis assured use electrocautery. We did have to cauterize several of the areas where there was suture ligation to the calcified vessels. I then repaired the fascia with of the leg using #1 Vicryl suture in a [id number] fashion. The skin was then closed with combination of 2-0 and 3-0 nylon suture in simple fashion. The leg was then cleaned and dried and a sterile dressing composed of Xeroform, 4 x 4's, ABD pad, sterile cast padding, Kerlix wrap, Elmo bandage were applied. Patient then transferred to the recovery room in stable condition. Patient tolerated procedure well and there are no complications. Michael Hamilton, my physician records assistant, was present for the entire procedure. His assistance was required for proper patient positioning, prepping and draping, surgical exposure, retraction, perform the technical details of the operation, closure of the wound and placement of sterile bandage. I attest to the content of the Intraoperative Record and any orders documented therein. Any exceptions are noted below.
[2022-11-15] MEDS: HYDROmorphone INJ 1 MG/ML SYRINGE IV PRN ×8 (12:27→13:07)
--- NOTE | 2022-11-15 13:38 | Anesthesiology Progress Note ---
Date of Service November 15, 2022 Anesthesia Post Procedure Vital Signs Vital Signs: Temp Pulse Pulse Resp BP Pulse Ox O2 Del Method 11/15/22 13:25 56 L 12 156/80 H 99 Nasal Cannula 11/15/22 13:15 37.3 C 59 L 12 142/78 H 99 Nasal Cannula 11/15/22 13:05 58 L 12 143/73 H 98 Nasal Cannula 11/15/22 12:55 57 L 10 L 136/72 94 Nasal Cannula 11/15/22 12:45 60 12 141/66 H 95 Nasal Cannula 11/15/22 12:25 62 20 146/64 H 93 Oxymask 11/15/22 12:35 61 12 121/66 96 Nasal Cannula 11/15/22 12:15 36.7 C 66 24 111/63 92 Oxymask 11/15/22 07:43 37.5 C 69 18 162/65 H 92 Room Air 11/14/22 21:52 37.0 C 69 19 159/73 H 93 Room Air 11/14/22 15:28 37.1 C 67 19 166/77 H 96 Room Air O2 Flow Rate 11/15/22 13:25 2 11/15/22 13:15 2 11/15/22 13:05 2 11/15/22 12:55 2 11/15/22 12:45 2 11/15/22 12:25 12 11/15/22 12:35 4 11/15/22 12:15 12 11/15/22 07:43 11/14/22 21:52 11/14/22 15:28 Pain Intensity Left Leg: Pain Intensity: 8 Transfer of Care Handoff Completed per policy Notes Mental Status: alert / awake / arousable Patient Amnestic to Procedure: Yes Nausea / Vomiting: adequately controlled Pain: adequately controlled Airway Patency, RR, SpO2: stable & adequate BP & HR: stable & adequate Hydration State: stable & adequate Anesthetic Complications: no major complications apparent
[2022-11-15] MEDS ORDERED: GLUCOSE 40% GEL 15 GM TUBE PO PRN (13:57)
[2022-11-15] MEDS ORDERED: ALUMINUM/MAGNESIUM SUSP 30 ML UDC PO PRN (13:57)
[2022-11-15] MEDS ORDERED: NALOXONE HCL 0.4 MG/1 ML VIAL/CARP IV PRN (13:57)
[2022-11-15] MEDS ORDERED: METOCLOPRAMIDE HCL INJ 5 MG/ML 2 ML VIAL IV PRN (13:57)
[2022-11-15] MEDS ORDERED: MAGNESIUM HYDROXIDE SUSP 30 ML UDC PO PRN (13:57)
[2022-11-15] MEDS ORDERED: traMADol HCL 50 MG TABLET PO PRN (13:57)
[2022-11-15] MEDS ORDERED: PHARMACY GLYCEMIC MGMT CONSULT PRN (13:57)
[2022-11-15] MEDS ORDERED: HYDROmorphone INJ 1 MG/ML SYRINGE IV PRN (13:57)
[2022-11-15] MEDS ORDERED: bisacodyL 10 MG SUPP PR PRN (13:57)
[2022-11-15] MEDS ORDERED: GLUCOSE 10 TAB/TUBE PO PRN (13:57)
[2022-11-15] MEDS ORDERED: GLUCAGON FOR INJ 1 MG VIAL SQ PRN (13:57)
[2022-11-15] MEDS ORDERED: CARBOHYDRATES FOR HYPOGLYCEMIA PO PRN (13:57)
[2022-11-15] MEDS ORDERED: DEXTROSE 50% 50 ML SYRINGE IV PRN (13:57)
[2022-11-15] MEDS ORDERED: TAMSULOSIN HCL 0.4 MG CAP PO PRN (13:57)
[2022-11-15] MEDS: SODIUM CHLORIDE 0.9% 1000ML 1,000 ML IV SCH (14:54)
[2022-11-15] MEDS: ACETAMINOPHEN 500 MG TAB PO SCH ×2 (14:54→21:37)
[2022-11-15] MEDS: KETOROLAC TROMETHAMINE 15 MG/ML VIAL IV SCH ×2 (14:55→21:33)
--- NOTE | 2022-11-15 15:10 | Pharmacy Report ---
Pharmacy Glycemic Short Note 2 - Date of Service November 15, 2022 - Glycemic Short BSG Results (Last 24 hours): 11/14/22 11/14/22 11/15/22 17:35 20:33 05:55 Glucose POC Glucose 149 H 130 H 108 H 11/15/22 11/15/22 11/15/22 08:14 12:17 14:04 Glucose 105 H POC Glucose 133 H 138 H OUTPATIENT ANTIDIABETIC REGIMEN: * Lantus 70 units SQ HS * metformin 1000 mg PO BID * A1c = 6.9% (11/14/22) ASSESSMENT: * Lien is a 67 yo male admitted with left heel ulcer, osteo. He is s/p left below the knee amputation. * Since admission he has been maintained on Lantus 14 units SQ BID + Novolog per CF/CR. This regimen has worked well thus far. Will change Lantus order to dose per scale as I do expect patient to require more basal insulin overtime. * Overnight checks will be added if patient becomes hyperglycemia throughout the evening. PLAN FOR INPATIENT GLYCEMIC CONTROL: * Hold outpatient oral diabetes medications * Basal insulin * Lantus 14-20 units SQ BID 14 units for BSG of 160 mg/dL or less 20 units for BSG greater than 160 mg/dL * Bolus insulin * NovoLog per scale ACHS or Q6hrs while NPO * Goal Range: Low 100 mg/dL - High 140 mg/dL * Correction Factor: 30 mg/dL/unit * Nutritional / Prandial insulin per carb ratio of 1 unit per 9 grams CHO consumed
[2022-11-15] MEDS ORDERED: LANTUS PER UNIT CHARGE SQ ONE (15:15)
--- NOTE | 2022-11-15 16:11 | Hospitalist Progress Note ---
Date of Service November 15, 2022 Assessment & Plan (1) Cellulitis: Plan: Presents with 3 years of non-healing large left diabetic foot wound after 5th toe amputation-see pictures from wound care on admission Had a wound vac and multiple rounds of abx over the years. Here with leukocytosis, no fevers, elevated ESR 80, CRP 16.[address] showed extensive cellulitis with possible osteomyelitis and subcutaneous emphysema. He had exposed bone at the fifth metatarsal and necrotic wound with purulent drainage Venous Doppler LLE no DVT Arterial Doppler with monophasic flow through SFA Monophasic waveforms and increased velocities are noted in the superficial femoral artery and the arteries of the calf. Soft tissue swelling is seen. The peroneal artery is not visualized. Findings are compatible with hemodynamically significant peripheral artery disease. Patient's CT and physical exam is most concerning for a severe cellulitis with osteomyelitis in setting of PAD No complete occlusion of LLE arteries so no Vascular eval needed Wound culture growing Proteus mirabilis that is pansensitive Blood cultures remain no growth to date Sed rate and CRP remain quite elevated Appreciate Orthopedics consultation -Status post BKA on 11/[address] Carson-postoperative care as per orthopedics. EBL 200 mL -continue on broad-spectrum antibiotics with daptomycin and Zosyn for 48 hours postoperatively (on 11/17) and if blood cultures remain negative, then can disc ontinue antibiotics as per my discussion with orthopedics -Follow Blood Cxs-NGTD -Pain control with tylenol, as needed IV Dilaudid, and IV Toradol ordered by orthopedics as needed-caution with renal function -continue to follow CBC, BMP, ESR, CRP in AM -Transfuse PRBCs if hemoglobin drops less than 7.5 (2) Osteomyelitis: Plan: -as above (3) Anemia: Plan: -Hgb 9.9 with MCV 83 on admission without any previous studies for comparison. Is now down to 9.0 preoperatively Fe studies show iron deficiency with transferrin saturation low at 10%, ferritin elevated but likely as acute phase reactant -Started Venofer 300mg IV daily x 3 days-last dose will be on 11/16 -check hemoccult stool-pending -will need further outpt GI workup after recovery from amputation if has not already had this ie EGD,colonoscopy -Follow CBC in the morning and transfuse if hemoglobin less than 7.5 (4) Diabetes mellitus: Plan: - Patient's home regimen held on admission - Continue BSG checks, Lantus, sliding-scale insulin, hypoglycemic protocol glucose here well controlled HgbA1C 6.9% Orthopedics consulted glycemic control but I discontinued this order as it is not necessary (5) HTN (hypertension): Plan: -Continue home amlodipine 10mg QDay, atenolol 50mg QDay, minoxidil 2.5mg BID -holding home furosemide 40mg QDay and irbesartan perioperatively and restart if renal function and BP allow on 11/16 (6) HLD (hyperlipidemia): Plan: -hold home simvastatin 20mg QPM while on Daptomycin (7) GERD (gastroesophageal reflux disease): Plan: -Continue PPI (8) BPH (benign prostatic hyperplasia): Plan: Continue home doxazosin 8mg HS, and tamsulosin 0.8mg QD. monitor for urinary retention postoperatively (9) PAD (peripheral artery disease): Plan: as noted on arterial Doppler secondary to DMII not a smoker advise higher intensity statin when able to resume statin (when off Daptomycin) and start aspirin 81mg daily which was increased to twice daily for DVT prophylaxis as per orthopedics Plan DVT proph-aspirin 81 mg p.o. twice daily, SCDs Dispo-continued stay on med surg, expect at least 2 to 3-day stay recovering from DKA. Will need PT/OT consults and may need rehab placement. Patient does live alone but does have daughter locally that can assist. Admission and Anticipated Discharge Date Admission Date: November 13, 2022 Subjective Patient seen in the PACU after his left BKA today. He was awake and alert, complaining of phantom type pain in the foot which had been amputated. He denied chest pain or shortness of breath, no nausea or abdominal pains. I discussed his care with orthopedic surgery. Review of Systems Review of Systems: All systems reviewed & are unremarkable except as noted in HPI & below Physical Exam Constitutional: WD/WN, vitals as above + obese Eyes: + anicteric sclerae ENMT: Ears: no hearing impairment Neck: trachea midline, no thyromegaly Respiratory: normal respiratory effort; no cough Auscultation: + wheezes (F aint mostly upper airway expiratory wheeze); no crackles and no rhonchi Cardiovascular: Rate/Rhythm: regular rate and regular rhythm Heart Sounds: no murmur Extremities: + edema (2+ right leg) Chest (Breasts): Chest: normal inspection of chest Gastrointestinal (Abdomen): normal bowel sounds, soft, nontender, no hepatosplenomegaly Musculoskeletal: Extremities: + extremities abnormal to inspection (R 2nd toe absent; left lower extremity now with BKA, dressing in place) and no cyanosis Neurologic: moves all extremities and awake; no focal motor deficits Psychiatric: A+Ox3, euthymic affect Results & Data Results & Data ([facility]) Vital Signs (Past 12 Hours) Vital Signs Temp Pulse Pulse Resp BP Pulse Ox O2 Del Method 11/15/22 16:00 36.7 C 65 18 144/70 H 96 Nasal Cannula 11/15/22 15:00 36.6 C 71 18 143/71 H 94 Nasal Cannula 11/15/22 14:30 36.7 C 61 16 154/78 H 94 Nasal Cannula 11/15/22 14:00 37.1 C 56 L 16 161/70 H 95 Nasal Cannula 11/15/22 13:40 56 L 14 165/80 H 99 Nasal Cannula 11/15/22 13:25 56 L 12 156/80 H 99 Nasal Cannula 11/15/22 13:15 37.3 C 59 L 12 142/78 H 99 Nasal Cannula 11/15/22 13:05 58 L 12 143/73 H 98 Nasal Cannula 11/15/22 12:55 57 L 10 L 136/72 94 Nasal Cannula 11/15/22 12:45 60 12 141/66 H 95 Nasal Cannula 11/15/22 12:25 62 20 146/64 H 93 Oxymask 11/15/22 12:35 61 12 121/66 96 Nasal Cannula 11/15/22 12:15 36.7 C 66 24 111/63 92 Oxymask 11/15/22 07:43 37.5 C 69 18 162/65 H 92 Room Air O2 Flow Rate 11/15/22 16:00 2 11/15/22 15:00 2 11/15/22 14:30 2 11/15/22 14:00 2 11/15/22 13:40 2 11/15/22 13:25 2 11/15/22 13:15 2 11/15/22 13:05 2 11/15/22 12:55 2 11/15/22 12:45 2 11/15/22 12:25 12 11/15/22 12:35 4 11/15/22 12:15 12 11/15/22 07:43 Laboratory Results 11/15/22 11/15/22 11/15/22 Range/Units 17:11 14:04 12:17 WBC (4.8-10.8) K/ul RBC (4.63-6.08) M/uL Hgb (14.0-18.0) g/dl Hct (40.1-51.0) % MCV (80.0-100.0) fL MCH (25.0-34.0) pg MCHC (32.0-36.0) g/dL RDW Std Deviation (36.4-46.3) fL RDW Coeff of Fauzia (11.5-14.5) % Plt Count (130-400) K/uL MPV (9.4-12.4) fL Immature Gran % (Auto) % Neut % (Auto) % Lymph % (Auto) % Chester % (Auto) % Eos % (Auto) % Baso % (Auto) % Neut # (Auto) (1.4-6.5) K/uL Lymph # (Auto) (1.2-3.4) K/uL Chester # (Auto) (0.24-0.82) K/uL Eos # (Auto) (0-0.50) K/uL Baso # (Auto) (0-0.2) K/uL Immature Gran # (Auto) (0.00-0.02) K/uL ESR (0-20) mm/hr Sodium (136-145) mmol/L Potassium (3.5-5.1) mmol/L Chloride (98-107) mmol/L Carbon Dioxide (21-32) mmol/L Anion Gap (3-11) BUN (6-23) mg/dl Creatinine (0.6-1.4) mg/dl Est Cr Clr Drug Dosing ml/min Est GFR ( Amer) ml/min Est GFR (Non-Af Amer) ml/min BUN/Creatinine Ratio (10-20) Glucose (70-99(Fasting)) mg/dl POC Glucose 178 H 138 H 133 H (70-99) mg/dl Calcium (8.5-10.1) mg/dl Total Bilirubin (0.2-1.0) mg/dl AST (13-39) U/L ALT (7-52) U/L Alkaline Phosphatase (34-104) U/L Total Creatine Kinase (30-223) U/L C-Reactive Protein (0-0.5) mg/dl Total Protein (6.0-8.3) gm/dl Albumin (3.4-5.0) gm/dl Globulin (2.5-4.0) gm/dl Albumin/Globulin Ratio (0.9-2) Hepatitis C Ab (EIA) (NON-REACTIVE) Hep C Ab Signal/Cutoff (<1.00) Blood Type Antibody Screen 11/15/22 11/15/22 11/15/22 Range/Units 08:14 08:14 08:14 WBC 8.92 (4.8-10.8) K/ul RBC 3.28 L (4.63-6.08) M/uL Hgb 9.0 L (14.0-18.0) g/dl Hct 27.6 L (40.1-51.0) % MCV 84.1 (80.0-100.0) fL MCH 27.4 (25.0-34.0) pg MCHC 32.6 (32.0-36.0) g/dL RDW Std Deviation 40.1 (36.4-46.3) fL RDW Coeff of Fauzia 13.0 (11.5-14.5) % Plt Count 256 (130-400) K/uL MPV 9.2 L (9.4-12.4) fL Immature Gran % (Auto) 0.4 % Neut % (Auto) 68.8 % Lymph % (Auto) 12.8 % Chester % (Auto) 10.7 % Eos % (Auto) 6.7 % Baso % (Auto) 0.6 % Neut # (Auto) 6.14 (1.4-6.5) K/uL Lymph # (Auto) 1.14 L (1.2-3.4) K/uL Chester # (Auto) 0.95 H (0.24-0.82) K/uL Eos # (Auto) 0.60 H (0-0.50) K/uL Baso # (Auto) 0.05 (0-0.2) K/uL Immature Gran # (Auto) 0.04 H (0.00-0.02) K/uL ESR 84 H (0-20) mm/hr Sodium 141 (136-145) mmol/L Potassium 3.5 (3.5-5.1) mmol/L Chloride 106 (98-107) mmol/L Carbon Dioxide 27 (21-32) mmol/L Anion Gap 8 (3-11) BUN 18 (6-23) mg/dl Creatinine 1.30 (0.6-1.4) mg/dl Est Cr Clr Drug Dosing 83.5 ml/min Est GFR ( Amer) 65.4 ml/min Est GFR (Non-Af Amer) 56.5 ml/min BUN/Creatinine Ratio 13.8 (10-20) Glucose 105 H (70-99(Fasting)) mg/dl POC Glucose (70-99) mg/dl Calcium 8.2 L (8.5-10.1) mg/dl Total Bilirubin 1.1 H (0.2-1.0) mg/dl AST 18 (13-39) U/L ALT 15 (7-52) U/L Alkaline Phosphatase 82 (34-104) U/L Total Creatine Kinase 260 H (30-223) U/L C-Reactive Protein 13.96 H (0-0.5) mg/dl Total Protein 6.6 (6.0-8.3) gm/dl Albumin 3.0 L (3.4-5.0) gm/dl Globulin 3.6 (2.5-4.0) gm/dl Albumin/Globulin Ratio 0.8 L (0.9-2) Hepatitis C Ab (EIA) (NON-REACTIVE) Hep C Ab Signal/Cutoff (<1.00) Blood Type Antibody Screen 11/15/22 11/14/22 11/14/22 Range/Units 05:55 20:33 17:51 WBC (4.8-10.8) K/ul RBC (4.63-6.08) M/uL Hgb (14.0-18.0) g/dl Hct (40.1-51.0) % MCV (80.0-100.0) fL MCH (25.0-34.0) pg MCHC (32.0-36.0) g/dL RDW Std Deviation (36.4-46.3) fL RDW Coeff of Fauzia (11.5-14.5) % Plt Count (130-400) K/uL MPV (9.4-12.4) fL Immature Gran % (Auto) % Neut % (Auto) % Lymph % (Auto) % Chester % (Auto) % Eos % (Auto) % Baso % (Auto) % Neut # (Auto) (1.4-6.5) K/uL Lymph # (Auto) (1.2-3.4) K/uL Chester # (Auto) (0.24-0.82) K/uL Eos # (Auto) (0-0.50) K/uL Baso # (Auto) (0-0.2) K/uL Immature Gran # (Auto) (0.00-0.02) K/uL ESR (0-20) mm/hr Sodium (136-145) mmol/L Potassium (3.5-5.1) mmol/L Chloride (98-107) mmol/L Carbon Dioxide (21-32) mmol/L Anion Gap (3-11) BUN (6-23) mg/dl Creatinine (0.6-1.4) mg/dl Est Cr Clr Drug Dosing ml/min Est GFR ( Amer) ml/min Est GFR (Non-Af Amer) ml/min BUN/Creatinine Ratio (10-20) Glucose (70-99(Fasting)) mg/dl POC Glucose 108 H 130 H (70-99) mg/dl Calcium (8.5-10.1) mg/dl Total Bilirubin (0.2-1.0) mg/dl AST (13-39) U/L ALT (7-52) U/L Alkaline Phosphatase (34-104) U/L Total Creatine Kinase (30-223) U/L C-Reactive Protein (0-0.5) mg/dl Total Protein (6.0-8.3) gm/dl Albumin (3.4-5.0) gm/dl Globulin (2.5-4.0) gm/dl Albumin/Globulin Ratio (0.9-2) Hepatitis C Ab (EIA) (NON-REACTIVE) Hep C Ab Signal/Cutoff (<1.00) Blood Type A Positive Antibody Screen NEGATIVE 11/14/22 Range/Units 09:41 WBC (4.8-10.8) K/ul RBC (4.63-6.08) M/uL Hgb (14.0-18.0) g/dl Hct (40.1-51.0) % MCV (80.0-100.0) fL MCH (25.0-34.0) pg MCHC (32.0-36.0) g/dL RDW Std Deviation (36.4-46.3) fL RDW Coeff of Fauzia (11.5-14.5) % Plt Count (130-400) K/uL MPV (9.4-12.4) fL Immature Gran % (Auto) % Neut % (Auto) % Lymph % (Auto) % Chester % (Auto) % Eos % (Auto) % Baso % (Auto) % Neut # (Auto) (1.4-6.5) K/uL Lymph # (Auto) (1.2-3.4) K/uL Chester # (Auto) (0.24-0.82) K/uL Eos # (Auto) (0-0.50) K/uL Baso # (Auto) (0-0.2) K/uL Immature Gran # (Auto) (0.00-0.02) K/uL ESR (0-20) mm/hr Sodium (136-145) mmol/L Potassium (3.5-5.1) mmol/L Chloride (98-107) mmol/L Carbon Dioxide (21-32) mmol/L Anion Gap (3-11) BUN (6-23) mg/dl Creatinine (0.6-1.4) mg/dl Est Cr Clr Drug Dosing ml/min Est GFR ( Amer) ml/min Est GFR (Non-Af Amer) ml/min BUN/Creatinine Ratio (10-20) Glucose (70-99(Fasting)) mg/dl POC Glucose (70-99) mg/dl Calcium (8.5-10.1) mg/dl Total Bilirubin (0.2-1.0) mg/dl AST (13-39) U/L ALT (7-52) U/L Alkaline Phosphatase (34-104) U/L Total Creatine Kinase (30-223) U/L C-Reactive Protein (0-0.5) mg/dl Total Protein (6.0-8.3) gm/dl Albumin (3.4-5.0) gm/dl Globulin (2.5-4.0) gm/dl Albumin/Globulin Ratio (0.9-2) Hepatitis C Ab (EIA) NON-REACTIVE (NON-REACTIVE) Hep C Ab Signal/Cutoff 0.08 (<1.00) Blood Type Antibody Screen PG Care Time/CCT Total # of Minutes Spent Total Time Spent with Patient: Total time spent is greater than 50% in coordination of care (as documented) at patient's floor/unit and/or counseling patient: Coding Level of Care Code 10200 Subseq Hosp Care Lvl 3 Diagnoses Cellulitis L03.116 Laterality: left Site of cellulitis: extremity Site of cellulitis of extremity: lower extremity Osteomyelitis M86.9 Laterality: left Osteomyelitis location: foot Osteomyelitis type: unspecified type Anemia D64.9 Anemia type: unspecified type Diabetes mellitus E11.9 HTN (hypertension) I10 HLD (hyperlipidemia) E78.5 GERD (gastroesophageal reflux disease) K21.9 BPH (benign prostatic hyperplasia) N40.0 PAD (peripheral artery disease) I73.9 (1) Anemia Anemia type: unspecified type Qualified Code(s): D64.9 - Anemia, unspecified (2) Cellulitis Laterality: left Site of cellulitis: extremity Site of cellulitis of extremity: lower extremity Qualified Code(s): L03.116 - Cellulitis of left lower limb (3) Osteomyelitis Laterality: left Osteomyelitis location: foot Osteomyelitis type: unspecified type Qualified Code(s): M86.9 - Osteomyelitis, unspecified
[2022-11-15] MEDS: ASCORBIC ACID 500 MG TAB PO SCH (18:01)
[2022-11-15] MEDS: DAPTOmycin 675 MG in SYRINGE 0 ML IV SCH (18:01)
[2022-11-15] MEDS ORDERED: TRANEXAMIC ACID / 0.7% NACL 1,000 MG/100 ML BAG IV SCH (18:15)
[2022-11-15] MEDS: IRON SUCROSE 300 MG in SODIUM CHLORIDE 0.9% 250 ML IV SCH (19:29)
[2022-11-15] MEDS: ASPIRIN 81 MG ECTAB PO SCH (21:32)
[2022-11-15] MEDS: DOCUSATE SODIUM 100 MG CAP PO SCH (21:35)
[2022-11-15] MEDS: SENNA 8.6 MG TAB PO SCH (21:36)
[2022-11-15] MEDS: DOXAZosin MESYLATE 4 MG TAB PO SCH (21:39)
[2022-11-16] MEDS: KETOROLAC TROMETHAMINE 15 MG/ML VIAL IV SCH ×4 (04:43→21:00)
[2022-11-16] MEDS: SODIUM CHLORIDE 0.9% 1000ML 1,000 ML IV SCH (04:47)
[2022-11-16] MEDS: PIPERACILLIN/TAZOBACTAM 4.5 GM in DEXTROSE 5% 100 ML IV SCH ×3 (05:56→22:34)
[2022-11-16] MEDS: ACETAMINOPHEN 500 MG TAB PO SCH ×3 (05:57→21:01)
[2022-11-16 07:24] LABS: Hematocrit (blood only) 24.6 % (40.1-51.0); Mean Corpuscular Hemoglobin 27.1 pg (25.0-34.0); Mean Corpuscular Hgb Conc 32.5 g/dL (32.0-36.0); Mean Corpuscular Volume 83.4 fL (80.0-100.0); Platelet Count 229 K/uL (130-400); RDW Coefficient of Variation 12.8 % (11.5-14.5); Red Blood Count 2.95 M/uL (4.63-6.08); White Blood Count 10.65 K/ul (4.8-10.8)
[2022-11-16 07:52] LABS: BUN Creatinine Ratio 12.2 (10-20); C Reactive Protein 11.63 mg/dl (0-0.5); Calcium 7.4 mg/dl (8.5-10.1); Creatinine Clr Calc Pharmacy 73.8 ml/min; Est GFR (African American) 56.4 ml/min; Est GFR (Non-African American) 48.7 ml/min; Potassium 3.3 mmol/L (3.5-5.1)
[2022-11-16] MEDS: MULTIVITAMIN TAB PO SCH (08:09)
[2022-11-16] MEDS: TAMSULOSIN HCL 0.4 MG CAP PO SCH (08:10)
[2022-11-16] MEDS: PANTOprazole 40 MG TAB PO SCH (08:10)
[2022-11-16] MEDS: amLODIPine BESYLATE 5 MG TAB PO SCH (08:10)
[2022-11-16] MEDS: ATENOLOL 50 MG TABLET PO SCH (08:10)
[2022-11-16] MEDS: minoxidiL 2.5 MG TAB PO SCH ×2 (08:11→21:01)
[2022-11-16] MEDS: ASPIRIN 81 MG ECTAB PO SCH ×2 (08:11→21:00)
--- NOTE | 2022-11-16 08:43 | Progress Notes ---
DATE OF NOTE: 11/16/2022. SUBJECTIVE: A 67-year-old gentleman, diabetic postoperative day 1 from a left below-knee amputation. He is doing pretty well. Really not having much pain. No chest pain or shortness of breath. Not feeling dizzy or lightheaded. OBJECTIVE: VITAL SIGNS: Temperature 37.1. Vital signs are stable. GENERAL: Shows a pleasant middle-aged male. Lying in bed, looks completely comfortable. EXTREMITIES: Examination of the left leg reveals the dressing to be clean, dry and intact. No drain age. LABORATORY DATA: Hemoglobin 8.0. Hematocrit 24.6. Electrolytes are stable. Potassium is a little low at 3.3. Creatinine just slightly elevated. ASSESSMENT: A 67-year-old diabetic postoperative day 1 from a left below-knee amputation, doing reas onably well. Pain is controlled. Electrolytes will need a little management. Creatinine is a littl e bit low, may be due to volume depletion. PLAN: 1. DVT prophylaxis includes thigh-high TEDs, SCDs, and aspirin twice a day. [facility]. 2. PT/OT. He will have to start mobilization. Obviously cannot put weight on his left leg. 3. Wound care. We are going to leave this dressing on for 2-3 weeks. Unless he gets saturated, we are just going to leave it in place. 4. Antibiotics. We are going to give him 48 hours of IV antibiotics postop. We will likely give hi m one week of cefadroxil 500 mg twice a day at discharge for 7 days. 5. Disposition. He will likely be orthopedically okay for discharge once he has had these antibioti cs for 48 hours postop. He will need his electrolytes tuned up a bit. We will need to follow his H and H. He is currently asymptomatic and we will let medicine determine whether he needs a blood ceja sfusion. I would recommend holding off for now and rechecking his H and H in the morning. Job ID: [id number]
[2022-11-16] MEDS: DOCUSATE SODIUM 100 MG CAP PO SCH ×2 (09:35→21:00)
[2022-11-16] MEDS: ASCORBIC ACID 500 MG TAB PO SCH ×2 (09:35→17:00)
[2022-11-16] MEDS: INSULIN ASPART PER UNIT SC SCH ×4 (09:41→20:53)
[2022-11-16] MEDS: LANTUS PER UNIT CHARGE SQ SCH ×2 (09:41→20:57)
[2022-11-16] MEDS ORDERED: POTASSIUM CHLORIDE CRTAB 20 MEQ TABCR PO STA (11:22)
[2022-11-16] MEDS: DAPTOmycin 675 MG in SYRINGE 0 ML IV SCH (17:00)
--- NOTE | 2022-11-16 20:40 | Hospitalist Progress Note ---
Date of Service November 16, 2022 Assessment & Plan (1) Cellulitis: Plan: 3 years of non-healing large left diabetic foot wound after 5th toe amputation. Had a wound vac and multiple rounds of abx over the years. Previous hospitalizations for the LLE were at [facility]. To his knowledge he has never had vascular surgery evaluation of his vasculature. At time of admission - ESR 80, CRP 16.[address] showed extensive cellulitis with possible osteomyelitis and s ubcutaneous emphysema. He had exposed bone at the fifth metatarsal and necrotic wound with purulent drainage Wound culture from LLE - Proteus mirabilis, pansensitive Blood cultures - negative to date Status post BKA on 11/15/[address] Carson. Continue broad-spectrum antibiotics with daptomycin and Zosyn for 48 hours postoperatively (on 11/17) and if blood cultures remain negative, then can d iscontinue IV abx and switch to PO abx for a few more days. Pain control with tylenol, as needed IV Dilaudid, and IV Toradol ordered by orthopedics. (2) S/P BKA (below knee amputation): Plan: left POD #[address] Carson (3) Osteomyelitis: Plan: LLE - see #1 above (4) Anemia: Plan: Fe studies show iron deficiency with transferrin saturation low at 10%, ferritin elevated but likely as acute phase reactant s/p IV Venofer 300mg IV daily x 3 days - last dose today check a b12/folate in am to be complete check hemoccult stool repeat CBC am (5) Diabetes mellitus: Plan: Patient's home regimen held on admission Cont Lantus, sliding-scale novolog BSGs today/overnight acceptable HgbA1C 6.9% (6) HTN (hypertension): Plan: Continue home amlodipine 10mg QDay, atenolol 50mg QDay, minoxidil 2.5mg BID, doxazosin/flomax (uncertain why is on 2 alpha blockers) Lasix and ARB on hold If renal function stable 11/17 and BPs still high resume ARB (7) HLD (hyperlipidemia): Plan: Holding statin while on Daptomycin Once dapto is d/c change to lipitor 80mg daily (8) GERD (gastroesophageal reflux disease): Plan: Continue PPI (9) BPH (benign prostatic hyperplasia): Plan: Continue home doxazosin 8mg HS, and tamsulosin 0.8mg QD. Again uncertain why he is on 2 alpha blockers (10) PAD (peripheral artery disease): Plan: seen on arterial duplex study earlier in admission significant stenoses and monophasic wafeforms seen throughout will formally consult Dr Hernandez, cardiology/vascular, to ensure that his arterial supply in the LLE is adequate enough to allow optimal stump healing cont aspirin once off daptomycin start high-intensity statin therapy (would go with lipitor 80mg daily) Plan DVT proph - aspirin 81 mg twice daily Will need PT/OT consults and may need rehab placement. Patient does live alone but does have daughter locally that can assist if necessary, by report. Admission and Anticipated Discharge Date Admission Date: November 13, 2022 Subjective no issues overnight states he is largely comfortable - some pain in left stump no dyspnea no chest pain no abdominal pain Review of Systems Review of Systems: gen - no fevers, no chills cv - no cp pulm - no cough GI - no nausea or emesis Physical Exam Physical Exam: gen - morbidly obese, NAD, pleasant mouth - MMM neck - no JVD heart - RRR, s1 s2 lungs - CTA b/l abd - distended, BS+, NT ext - left BKA; dressings intact; I did not remove the dressings; right leg without edema; pulses right foot 1-2+ psych - a/o x 3 Results & Data Results & Data ([facility]) Vital Signs (Past 12 Hours) Vital Signs Temp Pulse Resp BP Pulse Ox O2 Del Method 11/16/22 15:00 37 C 64 16 150/71 H 95 Room Air 11/16/22 11:41 37.1 C 61 16 124/66 95 Room Air Laboratory Results Laboratory Results - last 24 hr 11/16/22 11/16/22 11/16/22 07:06 07:06 07:06 WBC 10.65 RBC 2.95 L Hgb 8.0 L Hct 24.6 L MCV 83.4 MCH 27.1 MCHC 32.5 RDW Std Deviation 39.0 RDW Coeff of Fauzia 12.8 Plt Count 229 MPV 9.0 L ESR 79 H Sodium 141 Potassium 3.3 L Chloride 107 Carbon Dioxide 29 Anion Gap 5 BUN 18 Creatinine 1.47 H Est Cr Clr Drug Dosing 73.8 Est GFR ( Amer) 56.4 Est GFR (Non-Af Amer) 48.7 BUN/Creatinine Ratio 12.2 Glucose 86 POC Glucose Calcium 7.4 L C-Reactive Protein 11.63 H 11/16/22 11/16/22 11/16/22 07:45 12:02 17:06 WBC RBC Hgb Hct MCV MCH MCHC RDW Std Deviation RDW Coeff of Fauzia Plt Count MPV ESR Sodium Potassium Chloride Carbon Dioxide Anion Gap BUN Creatinine Est Cr Clr Drug Dosing Est GFR ( Amer) Est GFR (Non-Af Amer) BUN/Creatinine Ratio Glucose POC Glucose 95 105 H 87 Calcium C-Reactive Protein 11/16/22 20:28 WBC RBC Hgb Hct MCV MCH MCHC RDW Std Deviation RDW Coeff of Fauzia Plt Count MPV ESR Sodium Potassium Chloride Carbon Dioxide Anion Gap BUN Creatinine Est Cr Clr Drug Dosing Est GFR ( Amer) Est GFR (Non-Af Amer) BUN/Creatinine Ratio Glucose POC Glucose 102 H Calcium C-Reactive Protein Diagnostic Findings 11/13 blood cultures negative to date 11/13 wound cx left leg - proteus PG Care Time/CCT Total # of Minutes Spent Total Time Spent with Patient: Total time spent is greater than 50% in coordination of care (as documented) at patient's floor/unit and/or counseling patient: Coding Level of Care Code 82425 Subseq Hosp Care Lvl 2 Diagnoses Cellulitis L03.116 Laterality: left Site of cellulitis: extremity Site of cellulitis of extremity: lower extremity S/P BKA (below knee amputation) Z89.519 Osteomyelitis M86.9 Laterality: left Osteomyelitis location: foot Osteomyelitis type: unspecified type Anemia D64.9 Anemia type: unspecified type Diabetes mellitus E11.9 HTN (hypertension) I10 HLD (hyperlipidemia) E78.5 GERD (gastroesophageal reflux disease) K21.9 BPH (benign prostatic hyperplasia) N40.0 PAD (peripheral artery disease) I73.9 (1) Anemia Anemia type: unspecified type Qualified Code(s): D64.9 - Anemia, unspecified (2) Cellulitis Laterality: left Site of cellulitis: extremity Site of cellulitis of extremity: lower extremity Qualified Code(s): L03.116 - Cellulitis of left lower limb (3) Osteomyelitis Laterality: left Osteomyelitis location: foot Osteomyelitis type: unspecified type Qualified Code(s): M86.9 - Osteomyelitis, unspecified
[2022-11-16] MEDS: IRON SUCROSE 300 MG in SODIUM CHLORIDE 0.9% 250 ML IV SCH (20:57)
[2022-11-16] MEDS: DOXAZosin MESYLATE 4 MG TAB PO SCH (21:01)
[2022-11-16] MEDS: SENNA 8.6 MG TAB PO SCH (21:01)
[2022-11-17] MEDS: KETOROLAC TROMETHAMINE 15 MG/ML VIAL IV SCH ×2 (02:29→09:33)
[2022-11-17] MEDS: ACETAMINOPHEN 500 MG TAB PO SCH ×3 (06:12→22:03)
[2022-11-17] MEDS: PIPERACILLIN/TAZOBACTAM 4.5 GM in DEXTROSE 5% 100 ML IV SCH ×2 (06:12→14:31)
[2022-11-17 07:24] LABS: Hematocrit (blood only) 26.2 % (40.1-51.0); Hemoglobin 8.4 g/dl (14.0-18.0); Mean Corpuscular Hemoglobin 27.3 pg (25.0-34.0); Mean Corpuscular Hgb Conc 32.1 g/dL (32.0-36.0); Mean Corpuscular Volume 85.1 fL (80.0-100.0); Platelet Count 253 K/uL (130-400); Red Blood Count 3.08 M/uL (4.63-6.08); White Blood Count 8.96 K/ul (4.8-10.8)
[2022-11-17 07:53] LABS: BUN Creatinine Ratio 13.4 (10-20); Calcium 7.5 mg/dl (8.5-10.1); Creatinine Clr Calc Pharmacy 72.8 ml/min; Est GFR (African American) 55.5 ml/min; Est GFR (Non-African American) 47.9 ml/min; Potassium 3.7 mmol/L (3.5-5.1)
[2022-11-17] MEDS: amLODIPine BESYLATE 5 MG TAB PO SCH (08:59)
[2022-11-17] MEDS: MULTIVITAMIN TAB PO SCH (08:59)
[2022-11-17] MEDS: ASCORBIC ACID 500 MG TAB PO SCH ×2 (08:59→17:56)
[2022-11-17] MEDS: ASPIRIN 81 MG ECTAB PO SCH ×2 (08:59→22:03)
[2022-11-17] MEDS: PANTOprazole 40 MG TAB PO SCH (08:59)
[2022-11-17] MEDS: DOCUSATE SODIUM 100 MG CAP PO SCH ×2 (08:59→22:03)
[2022-11-17] MEDS: TAMSULOSIN HCL 0.4 MG CAP PO SCH (08:59)
[2022-11-17] MEDS: minoxidiL 2.5 MG TAB PO SCH ×2 (08:59→22:02)
[2022-11-17] MEDS: ATENOLOL 50 MG TABLET PO SCH (09:00)
[2022-11-17] MEDS: LANTUS PER UNIT CHARGE SQ SCH ×2 (09:07→22:08)
[2022-11-17] MEDS: INSULIN ASPART PER UNIT SC SCH ×4 (09:32→22:04)
[2022-11-17] MEDS ORDERED: NITROGLYCERIN SL 0.4 MG/TAB TAB SL PRN (10:21)
--- NOTE | 2022-11-17 15:52 | Progress Notes ---
SUBJECTIVE: A 67-year-old gentleman postoperative day 2 from a left below-knee amputation. He is do ing well. He denies any significant pain. He is looking to go to rehabilitation. OBJECTIVE: VITAL SIGNS: Temperature 37.0. Vital signs are stable. GENERAL: Shows a pleasant middle-aged male. He is sitting up in bed and looks comfortable. EXTREMITIES: Examination of the left leg reveals the dressing to be clean, dry, and intact. No drai nage. He can do a good straight leg raise. LABORATORY DATA: Hemoglobin 8.4. Hematocrit 26.2. Electrolytes are fairly stable. Creatinine just slightly elevated. ASSESSMENT: A 67-year-old gentleman postoperative day 2 from a left below-knee amputation for chroni c infection. Orthopedically, he is doing well. Appears to be recovering reasonably well. Hemoglobi n looks stable. Creatinine just a little bit elevated, but likely related to volume depletion. PLAN: 1. DVT prophylaxis includes thigh-high TEDs, SCDs, and aspirin twice a day. Recommend aspirin twice a day for 4 to 6 weeks. 2. PT/OT. Mobilization as tolerated. Obviously can put weight on his left leg. 3. Wound care. We are going to leave this dressing on for 2-3 weeks. A sterile bandage and we just leave it alone. If it gets soiled or saturated, just let us know. 4. Disposition: He is orthopedically okay for discharge any time. We would recommend he finish 48 hours of antibiotics after surgery, then I would prefer him to go home or to rehab, on 500 mg t wice a day for 7 days in this diabetic patient. Any orthopedic questions can be directed to me at [phone]. I need to see him back somewhere between 2 and 3 weeks out from surgery date. Job ID: [id number]
[2022-11-17] MEDS: CEFDINIR 300 MG CAP PO SCH (22:02)
[2022-11-17] MEDS: SENNA 8.6 MG TAB PO SCH (22:02)
--- NOTE | 2022-11-17 22:02 | Hospitalist Progress Note ---
Date of Service November 17, 2022 Assessment & Plan (1) Cellulitis: Plan: 3 years of non-healing large left diabetic foot wound after 5th toe amputation. Had a wound vac and multiple rounds of abx over the years. Previous hospitalizations for the LLE were at [facility]. To his knowledge he has never had vascular surgery evaluation of his vasculature. At time of admission - ESR 80, CRP 16.[address] showed extensive cellulitis with possible osteomyelitis and s ubcutaneous emphysema. He had exposed bone at the fifth metatarsal and necrotic wound with purulent drainage Wound culture from LLE - Proteus mirabilis, pansensitive Blood cultures - negative to date Status post BKA on 11/15/[address] Carson. Continue broad-spectrum antibiotics with daptomycin and Zosyn for 48 hours postoperatively (on 11/17) and if blood cultures remain negative, then can d iscontinue IV abx and switch to PO abx for a few more days. Pain control with tylenol, as needed IV Dilaudid, and IV Toradol ordered by orthopedics. consulted vascular: will not be here until . May recommend outpatient followup. Ortho feels patient may be discharged tomorrow. (2) S/P BKA (below knee amputation): Plan: left POD #[address] Carson (3) Osteomyelitis: Plan: LLE - see #1 above (4) Anemia: Plan: Fe studies show iron deficiency with transferrin saturation low at 10%, ferritin elevated but likely as acute phase reactant s/p IV Venofer 300mg IV daily x 3 days - last dose today check a b12/folate in am to be complete check hemoccult stool repeat CBC am (5) Diabetes mellitus: Plan: Patient's home regimen held on admission Cont Lantus, sliding-scale novolog BSGs today/overnight acceptable HgbA1C 6.9% (6) HTN (hypertension): Plan: Continue home amlodipine 10mg QDay, atenolol 50mg QDay, minoxidil 2.5mg BID, doxazosin/flomax (uncertain why is on 2 alpha blockers) Lasix and ARB on hold If renal function stable 11/17 and BPs still high resume ARB (7) HLD (hyperlipidemia): Plan: Holding statin while on Daptomycin Once dapto is d/c change to lipitor 80mg daily (8) GERD (gastroesophageal reflux disease): Plan: Continue PPI (9) BPH (benign prostatic hyperplasia): Plan: Continue home doxazosin 8mg HS, and tamsulosin 0.8mg QD. Again uncertain why he is on 2 alpha blockers (10) PAD (peripheral artery disease): Plan: seen on arterial duplex study earlier in admission significant stenoses and monophasic wafeforms seen throughout will formally consult Dr Hernandez, cardiology/vascular, to ensure that his arterial supply in the LLE is adequate enough to allow optimal stump healing cont aspirin once off daptomycin start high-intensity statin therapy (would go with lipitor 80mg daily) Plan DVT proph - aspirin 81 mg twice daily Will need PT/OT consults and may need rehab placement. Patient does live alone but does have daughter locally that can assist if necessary, by report. Admission and Anticipated Discharge Date Admission Date: November 13, 2022 Subjective 67 yo male is very comfortable. He is hoping for discharge tomorrow. Review of Systems Review of Systems: All systems reviewed & are unremarkable except as noted in HPI & below Physical Exam Physical Exam: gen - morbidly obese, NAD, pleasant mouth - MMM neck - no JVD heart - RRR, s1 s2 lungs - CTA b/l abd - distended, BS+, NT ext - left BKA; dressings intact; I did not remove the dressings; right leg without edema; pulses right foot 1-2+ psych - a/o x 3 Results & Data Results & Data ([facility]) Vital Signs (Past 12 Hours) Vital Signs Temp Pulse Pulse Resp BP BP Pulse Ox 11/17/22 21:52 37.3 C 62 18 168/77 H 93 11/17/22 15:52 37.2 C 62 18 171/71 H 93 O2 Del Method 11/17/22 21:52 Room Air 11/17/22 15:52 Room Air PG Care Time/CCT Total # of Minutes Spent Total Time Spent with Patient: Total time spent is greater than 50% in coordination of care (as documented) at patient's floor/unit and/or counseling patient: Coding Level of Care Code 20455 Subseq Hosp Care Lvl 2 Diagnoses Cellulitis L03.116 Laterality: left Site of cellulitis: extremity Site of cellulitis of extremity: lower extremity S/P BKA (below knee amputation) Z89.519 Osteomyelitis M86.9 Laterality: left Osteomyelitis location: foot Osteomyelitis type: unspecified type Anemia D64.9 Anemia type: unspecified type Diabetes mellitus E11.9 HTN (hypertension) I10 HLD (hyperlipidemia) E78.5 GERD (gastroesophageal reflux disease) K21.9 BPH (benign prostatic hyperplasia) N40.0 PAD (peripheral artery disease) I73.9 (1) Anemia Anemia type: unspecified type Qualified Code(s): D64.9 - Anemia, unspecified (2) Cellulitis Laterality: left Site of cellulitis: extremity Site of cellulitis of extremity: lower extremity Qualified Code(s): L03.116 - Cellulitis of left lower limb (3) Osteomyelitis Laterality: left Osteomyelitis location: foot Osteomyelitis type: unspecified type Qualified Code(s): M86.9 - Osteomyelitis, unspecified
[2022-11-17] MEDS: metroNIDAZOLE 500 MG TAB PO SCH (22:03)
[2022-11-17] MEDS: DOXAZosin MESYLATE 4 MG TAB PO SCH (22:04)
[2022-11-18] MEDS: ACETAMINOPHEN 500 MG TAB PO SCH ×3 (06:09→21:47)
[2022-11-18] MEDS ORDERED: IRBESARTAN 150 MG TAB PO SCH (09:30)
[2022-11-18] MEDS: ASCORBIC ACID 500 MG TAB PO SCH ×2 (09:37→17:50)
[2022-11-18] MEDS: MULTIVITAMIN TAB PO SCH (09:37)
[2022-11-18] MEDS: ASPIRIN 81 MG ECTAB PO SCH ×2 (09:37→21:46)
[2022-11-18] MEDS: minoxidiL 2.5 MG TAB PO SCH ×2 (09:37→21:46)
[2022-11-18] MEDS: metroNIDAZOLE 500 MG TAB PO SCH ×3 (09:37→21:46)
[2022-11-18] MEDS: ATENOLOL 50 MG TABLET PO SCH (09:37)
[2022-11-18] MEDS: amLODIPine BESYLATE 5 MG TAB PO SCH (09:37)
[2022-11-18] MEDS: PANTOprazole 40 MG TAB PO SCH (09:37)
[2022-11-18] MEDS: CEFDINIR 300 MG CAP PO SCH ×2 (09:37→21:49)
[2022-11-18] MEDS: TAMSULOSIN HCL 0.4 MG CAP PO SCH (09:38)
[2022-11-18] MEDS: DOCUSATE SODIUM 100 MG CAP PO SCH ×2 (09:38→21:48)
[2022-11-18] MEDS: INSULIN ASPART PER UNIT SC SCH ×4 (09:48→21:51)
[2022-11-18] MEDS: LANTUS PER UNIT CHARGE SQ SCH ×2 (09:50→21:58)
--- NOTE | 2022-11-18 17:38 | Progress Notes ---
SUBJECTIVE: A 67-year-old diabetic patient. Postop day #3 from a left below-knee amputation. He is doing pretty well. Pain is controlled. I believe he is just waiting for placement. OBJECTIVE: VITAL SIGNS: Temperature 37.0. Vital signs are stable. EXTREMITIES: Physical Examination of the left leg reveals the dressing to be clean, dry and intact. He can lift his leg. He can flex and extend his knee appropriately. No drainage. LABORATORY DATA: Hemoglobin 8.4. Hematocrit 26.2. ASSESSMENT: A 67-year-old diabetic postop day #3 from left below-knee amputation for chronic infecti on and bone infection. He is doing well. Pain is controlled. PLAN: 1. DVT prophylaxis including thigh-high TEDs and SCDs and back on any medical anticoagulation as nee ded. We would recommend aspirin twice a day [facility] 2. PT/OT. He can mobilize as tolerated. He will be possible candidate for prosthetic implantation in about 3 months. 3. Medical management as per the medicine service. 4. Antibiotics. We would recommend 7 days of 500 mg twice a day upon discharge. I need to se e him back 2-3 weeks out from surgery date. Any orthopedic questions can be directed to me at [phone] . Job ID: [id number]
--- NOTE | 2022-11-18 20:42 | Hospitalist Progress Note ---
Date of Service November 18, 2022 Assessment & Plan (1) Cellulitis: Plan: 3 years of non-healing large left diabetic foot wound after 5th toe amputation. Had a wound vac and multiple rounds of abx over the years. Previous hospitalizations for the LLE were at [facility]. To his knowledge he has never had vascular surgery evaluation of his vasculature. At time of admission here - ESR 80, CRP 16.[address] showed extensive cellulitis with possible osteomyelitis and subcutaneous emphysema. He had exposed bone at the fifth metatarsal and necrotic wound with purulent drainage Wound culture from LLE - Proteus mirabilis, pansensitive; and anaerobes Blood cultures - negative x 5 days Status post BKA on 11/15/[address] Carson. IV daptomycin and Zosyn now d/c transitioned to cefdinir BID and flagyl TID x7 additional days appreciate ortho assistance (2) S/P BKA (below knee amputation): Plan: left POD #[address] Carson doing well from surg standpoint some phantom limb pain - start gabapentin 100 TID (3) Osteomyelitis: Plan: LLE - see #1 above (4) Anemia: Plan: Fe studies show iron deficiency with transferrin saturation low at 10%, ferritin elevated but likely as acute phase reactant s/p IV Venofer 300mg IV daily x 3 days this admission B12 def detected - level is about 150 - start supplementation folate wnl repeat H/H am for stability (5) Diabetes mellitus: Plan: Patient's home regimen held on admission Cont Lantus, sliding-scale novolog BSGs today/overnight acceptable HgbA1C 6.9% (6) HTN (hypertension): Plan: Continue home amlodipine 10mg QDay, atenolol 50mg QDay, minoxidil 2.5mg BID, doxazosin/flomax (uncertain why is on 2 alpha blockers) Lasix and ARB on hold but resuming ARB today -- 150mg BID Resume lasix 11/19 (7) HLD (hyperlipidemia): Plan: would use lipitor in jeremiah of simvastatin due to better quality evidence for PAD, etc (8) GERD (gastroesophageal reflux disease): Plan: Continue PPI (9) BPH (benign prostatic hyperplasia): Plan: Continue home doxazosin 8mg HS, and tamsulosin 0.8mg QD. Again uncertain why he is on 2 alpha blockers (10) PAD (peripheral artery disease): Plan: seen on arterial duplex study earlier in admission significant stenoses and monophasic wafeforms seen throughout will formally consult Dr Hernandez, cardiology/vascular, to ensure that his arterial supply in the LLE is adequate enough to allow optimal stump healing cont aspirin resume statin Plan DVT proph - aspirin 81 mg twice daily dispo - rehab Admission and Anticipated Discharge Date Admission Date: November 13, 2022 Subjective no issues today he's anxious for discharge c/o "phantom" pain in LLE and stump pain but otherwise feels good eating well no fevers Review of Systems Review of Systems: gen - feels good, no fevers, no chills cv - no cp pulm - no dyspnea GI - no n/v Physical Exam Physical Exam: gen - morbidly obese, NAD mouth - MMM neck - no JVD heart - RRR, s1 s2, no murmur lungs - CTA b/l abd - distended, BS+, NT ext - left BKA; dressings intact; I did not remove the dressings; right leg without edema; pulses right foot 1-2+ psych - a/o x 3 Results & Data Results & Data ([facility]) Vital Signs (Past 12 Hours) Vital Signs Temp Pulse Pulse Resp BP Pulse Ox O2 Del Method 11/18/22 07:30 37 C 67 18 178/90 H 95 Room Air 11/17/22 21:52 37.3 C 62 18 168/77 H 93 Room Air Intake and Output 11/18/22 11/18/22 11/18/22 06:59 14:59 22:59 Output Total 1151 / 1551 Balance -1151 / -796 Output: Urine 1150 / 1550 # Bowel Movements Laboratory Results Laboratory Results - last 24 hr 11/18/22 11/18/22 11/18/22 08:14 12:28 17:28 POC Glucose 119 H 144 H 134 H PG Care Time/CCT Total # of Minutes Spent Total Time Spent with Patient: Total time spent is greater than 50% in coordination of care (as documented) at patient's floor/unit and/or counseling patient: Coding Level of Care Code 21491 Subseq Hosp Care Lvl 2 Diagnoses Cellulitis L03.116 Laterality: left Site of cellulitis: extremity Site of cellulitis of extremity: lower extremity S/P BKA (below knee amputation) Z89.519 Osteomyelitis M86.9 Laterality: left Osteomyelitis location: foot Osteomyelitis type: unspecified type Anemia D64.9 Anemia type: unspecified type Diabetes mellitus E11.9 HTN (hypertension) I10 HLD (hyperlipidemia) E78.5 GERD (gastroesophageal reflux disease) K21.9 BPH (benign prostatic hyperplasia) N40.0 PAD (peripheral artery disease) I73.9 (1) Anemia Anemia type: unspecified type Qualified Code(s): D64.9 - Anemia, unspecified (2) Cellulitis Laterality: left Site of cellulitis: extremity Site of cellulitis of extremity: lower extremity Qualified Code(s): L03.116 - Cellulitis of left lower limb (3) Osteomyelitis Laterality: left Osteomyelitis location: foot Osteomyelitis type: unspecified type Qualified Code(s): M86.9 - Osteomyelitis, unspecified
[2022-11-18] MEDS: DOXAZosin MESYLATE 4 MG TAB PO SCH (21:48)
[2022-11-18] MEDS: IRBESARTAN 150 MG TAB PO SCH (21:49)
[2022-11-18] MEDS: SENNA 8.6 MG TAB PO SCH (21:50)
[2022-11-19] MEDS: ACETAMINOPHEN 500 MG TAB PO SCH ×3 (06:14→21:30)
[2022-11-19 06:57] LABS: Hematocrit (blood only) 26.7 % (40.1-51.0); Hemoglobin 8.7 g/dl (14.0-18.0)
[2022-11-19 08:00] LABS: BUN Creatinine Ratio 17.1 (10-20); Calcium 7.8 mg/dl (8.5-10.1); Creatinine Clr Calc Pharmacy 88.2 ml/min; Est GFR (Non-African American) 60.4 ml/min; Potassium 3.8 mmol/L (3.5-5.1)
[2022-11-19] MEDS: IRBESARTAN 150 MG TAB PO SCH ×2 (08:20→21:29)
[2022-11-19] MEDS: CEFDINIR 300 MG CAP PO SCH ×2 (08:20→21:32)
[2022-11-19] MEDS: ATENOLOL 50 MG TABLET PO SCH (08:21)
[2022-11-19] MEDS: amLODIPine BESYLATE 5 MG TAB PO SCH (08:21)
[2022-11-19] MEDS: metroNIDAZOLE 500 MG TAB PO SCH ×3 (08:21→21:32)
[2022-11-19] MEDS: PANTOprazole 40 MG TAB PO SCH (08:21)
[2022-11-19] MEDS: TAMSULOSIN HCL 0.4 MG CAP PO SCH (08:22)
[2022-11-19] MEDS: ASCORBIC ACID 500 MG TAB PO SCH ×2 (08:22→17:53)
[2022-11-19] MEDS: MULTIVITAMIN TAB PO SCH (08:22)
[2022-11-19] MEDS: ASPIRIN 81 MG ECTAB PO SCH ×2 (08:22→21:31)
[2022-11-19] MEDS: minoxidiL 2.5 MG TAB PO SCH ×2 (08:22→21:31)
[2022-11-19] MEDS: DOCUSATE SODIUM 100 MG CAP PO SCH ×2 (08:23→21:28)
[2022-11-19] MEDS: INSULIN ASPART PER UNIT SC SCH ×4 (08:31→21:36)
[2022-11-19] MEDS: LANTUS PER UNIT CHARGE SQ SCH ×2 (08:32→21:36)
[2022-11-19] MEDS: CYANOCOBALAMIN (B-12) 500 MCG TABLET PO SCH (10:48)
[2022-11-19] MEDS: FUROSEMIDE 20 MG TAB PO SCH (13:00)
[2022-11-19] MEDS: ATORVASTATIN 40 MG TAB PO SCH (13:00)
[2022-11-19] MEDS: GABAPENTIN 100 MG CAP PO SCH ×2 (13:01→21:30)
--- NOTE | 2022-11-19 21:09 | Hospitalist Progress Note ---
Date of Service November 19, 2022 Assessment & Plan (1) Cellulitis: Plan: LLE. s/p left BKA - 11/15/[address] Carson. POD #4. 3 years of non-healing large left diabetic foot wound after 5th toe amputation. Had a wound vac and multiple rounds of abx over the years. [facility] To his knowledge he has never had vascular surgery evaluation of his vasculature. At time of admission here - ESR 80, CRP 16.[address] showed extensive cellulitis with possible osteomyelitis and subcutaneous emphysema. He had exposed bone at the fifth metatarsal and necrotic wound with purulent drainage Wound culture from LLE - Proteus mirabilis, pansensitive; and anaerobes Blood cultures - negative x 5 days IV daptomycin and Zosyn now d/c transitioned to cefdinir BID and flagyl TID for a few more days then d/c appreciate ortho assistance (2) S/P BKA (below knee amputation): Plan: left POD #[address] Carson doing well from surg standpoint some phantom limb pain - started gabapentin 100 TID titrate every 3 days or so as needed (3) Osteomyelitis: Plan: LLE - see #1 above (4) Anemia: Plan: Fe studies showed iron deficiency with transferrin saturation low at 10%, ferritin elevated but likely as acute phase reactant s/p IV Venofer 300mg IV daily x 3 days this admission B12 def detected - level is about 150 - started supplementation folate wnl repeat H/H stable fecal occult pending to ensure no chronic blood loss (5) Diabetes mellitus: Plan: Patient's home regimen held on admission Cont Lantus, sliding-scale novolog BSGs remain acceptable HgbA1C 6.9% can likely resume metformin at this time (6) HTN (hypertension): Plan: Continue amlodipine 10mg QDay, atenolol 50mg QDay, minoxidil 2.5mg BID, doxazosin/flomax (uncertain why is on 2 alpha blockers) ARB (irbesartan) resumed -- 150mg BID Resume lasix today follow response (7) HLD (hyperlipidemia): Plan: would use lipitor in jeremiah of simvastatin due to better quality evidence for PAD, etc thus, start lipitor 40mg daily today (8) GERD (gastroesophageal reflux disease): Plan: Continue PPI (9) BPH (benign prostatic hyperplasia): Plan: Continue home doxazosin 8mg HS, and tamsulosin 0.8mg QD. Again uncertain why he is on 2 alpha blockers (10) PAD (peripheral artery disease): Plan: LLE seen on arterial duplex study earlier in admission significant stenoses and monophasic wafeforms seen throughout will formally consult Dr Hernandez, cardiology/vascular, to ensure that his arterial supply in the LLE is adequate enough to allow optimal stump healing cont aspirin resumed statin (11) B12 deficiency: Plan: b12 level 151 replace - B12 1000mcg daily x 1 year (12) Morbid obesity with BMI of 40.0-44.9, adult: Plan: BMI 40 Plan DVT proph - aspirin 81 mg twice daily dispo - rehab - [facility] in [place] (await consult by vascular to ensure no intervention needed on LLE) Admission and Anticipated Discharge Date Admission Date: November 13, 2022 Subjective no changes or new complaints feels good eating well left phantom limb pain/discomfort remains - no worse than prior we discussed initiation of gabapentin for this left stump pain is unchanged anxious to get to rehab preparations are being made for potentially going to [facility] in [place] (he is from [place]) Review of Systems Review of Systems: gen - feels good; normal appetite; no fever cv - no cp pulm - no dyspnea GI - no abd pain; moving bowels Physical Exam Physical Exam: gen - morbidly obese, NAD, watching TV mouth - MMM neck - no JVD heart - RRR, s1 s2, no murmur lungs - CTA b/l abd - distended - no change, BS+, NT, no HSM ext - left BKA; dressings intact; right leg without edema; pulses right foot 1- 2+ psych - a/o x 3 Results & Data Results & Data ([facility]) Vital Signs (Past 12 Hours) Vital Signs Temp Pulse Resp BP Pulse Ox O2 Del Method 11/19/22 15:25 36.4 C L 63 20 145/77 H 94 Room Air Laboratory Results Laboratory Results - last 24 hr 11/19/22 11/19/22 11/19/22 06:36 06:36 08:02 Hgb 8.7 L Hct 26.7 L Sodium 141 Potassium 3.8 Chloride 110 H Carbon Dioxide 26 Anion Gap 5 BUN 21 Creatinine 1.23 Est Cr Clr Drug Dosing 88.2 Est GFR ( Amer) 70.0 Est GFR (Non-Af Amer) 60.4 BUN/Creatinine Ratio 17.1 Glucose 119 H POC Glucose 126 H Calcium 7.8 L 11/19/22 11/19/22 11/19/22 11:44 16:57 20:34 Hgb Hct Sodium Potassium Chloride Carbon Dioxide Anion Gap BUN Creatinine Est Cr Clr Drug Dosing Est GFR ( Amer) Est GFR (Non-Af Amer) BUN/Creatinine Ratio Glucose POC Glucose 200 H 112 H 141 H Calcium PG Care Time/CCT Total # of Minutes Spent Total Time Spent with Patient: Total time spent is greater than 50% in coordination of care (as documented) at patient's floor/unit and/or counseling patient: Coding Level of Care Code 30008 Subseq Hosp Care Lvl 2 Diagnoses Cellulitis L03.116 Laterality: left Site of cellulitis: extremity Site of cellulitis of extremity: lower extremity S/P BKA (below knee amputation) Z89.519 Osteomyelitis M86.9 Laterality: left Osteomyelitis location: foot Osteomyelitis type: unspecified type Anemia D64.9 Anemia type: unspecified type Diabetes mellitus E11.9 HTN (hypertension) I10 HLD (hyperlipidemia) E78.5 GERD (gastroesophageal reflux disease) K21.9 BPH (benign prostatic hyperplasia) N40.0 PAD (peripheral artery disease) I73.9 B12 deficiency E53.8 Morbid obesity with BMI of 40.0-44.9, adult E66.01; Z68.41 (1) Anemia Anemia type: unspecified type Qualified Code(s): D64.9 - Anemia, unspecified (2) Cellulitis Laterality: left Site of cellulitis: extremity Site of cellulitis of extremity: lower extremity Qualified Code(s): L03.116 - Cellulitis of left lower limb (3) Osteomyelitis Laterality: left Osteomyelitis location: foot Osteomyelitis type: unspecified type Qualified Code(s): M86.9 - Osteomyelitis, unspecified
[2022-11-19] MEDS: SENNA 8.6 MG TAB PO SCH (21:27)
[2022-11-19] MEDS: DOXAZosin MESYLATE 4 MG TAB PO SCH (21:32)
[2022-11-20] MEDS: ACETAMINOPHEN 500 MG TAB PO SCH ×3 (06:17→22:02)
[2022-11-20 08:39] LABS: Hematocrit (blood only) 26.1 % (40.1-51.0); Hemoglobin 8.6 g/dl (14.0-18.0); Mean Corpuscular Hemoglobin 27.7 pg (25.0-34.0); Mean Corpuscular Volume 84.2 fL (80.0-100.0); Platelet Count 287 K/uL (130-400); RDW Coefficient of Variation 13.9 % (11.5-14.5); RDW Standard Deviation 41.3 fL (36.4-46.3); White Blood Count 11.38 K/ul (4.8-10.8)
[2022-11-20 09:01] LABS: BUN Creatinine Ratio 20.2 (10-20); Calcium 8.1 mg/dl (8.5-10.1); Creatinine Clr Calc Pharmacy 95.2 ml/min; Est GFR (African American) 76.7 ml/min; Est GFR (Non-African American) 66.2 ml/min; Potassium 3.9 mmol/L (3.5-5.1)
[2022-11-20] MEDS: ASCORBIC ACID 500 MG TAB PO SCH ×2 (09:07→17:52)
[2022-11-20] MEDS: PANTOprazole 40 MG TAB PO SCH (09:07)
[2022-11-20] MEDS: minoxidiL 2.5 MG TAB PO SCH ×2 (09:08→22:00)
[2022-11-20] MEDS: metroNIDAZOLE 500 MG TAB PO SCH ×2 (09:08→13:25)
[2022-11-20] MEDS: GABAPENTIN 100 MG CAP PO SCH ×3 (09:09→21:59)
[2022-11-20] MEDS: ATORVASTATIN 40 MG TAB PO SCH (09:09)
[2022-11-20] MEDS: IRBESARTAN 150 MG TAB PO SCH ×2 (09:09→22:00)
[2022-11-20] MEDS: ASPIRIN 81 MG ECTAB PO SCH ×2 (09:09→22:01)
[2022-11-20] MEDS: CYANOCOBALAMIN (B-12) 500 MCG TABLET PO SCH (09:10)
[2022-11-20] MEDS: DOCUSATE SODIUM 100 MG CAP PO SCH ×2 (09:10→21:58)
[2022-11-20] MEDS: CEFDINIR 300 MG CAP PO SCH (09:10)
[2022-11-20] MEDS: TAMSULOSIN HCL 0.4 MG CAP PO SCH (09:10)
[2022-11-20] MEDS: amLODIPine BESYLATE 5 MG TAB PO SCH (09:11)
[2022-11-20] MEDS: MULTIVITAMIN TAB PO SCH (09:11)
[2022-11-20] MEDS: ATENOLOL 50 MG TABLET PO SCH (09:11)
[2022-11-20] MEDS: FUROSEMIDE 20 MG TAB PO SCH (09:11)
[2022-11-20] MEDS: INSULIN ASPART PER UNIT SC SCH ×4 (09:17→21:59)
[2022-11-20] MEDS: LANTUS PER UNIT CHARGE SQ SCH ×2 (09:18→22:04)
--- NOTE | 2022-11-20 12:55 | Vascular Medicine Consultation ---
Date of Consultation November 20, 2022 Assessment & Plan (1) PAD (peripheral artery disease): Reviewed patient's lower extremity arterial duplex. He has no evidence of left lower extremity inflow disease. SFA/profunda/popliteal arteries are widely patent except for moderate mid SFA stenosis. Three-vessel runoff noted with only severe disease in distal segments/pedal vessels, likely below site of amputation. Patient's residual lower extremity PAD should not impact BKA surgical wound healing. No need for additional vascular testing or intervention. Right lower extremity appears well-perfused with 2+ pedal pulses. Continue ASCVD risk factor modification and diabetes management per primary team/primary care. Can follow-up with vascular medicine as needed. History of Present Illness Attending Physician: Cain Marcus History of Present Illness Mr. Raymond is a very pleasant 67-year-old man with history of type 2 diabetes on insulin, now post left BKA for nonhealing DFU seen today while inpatient for left lower extremity PAD. No prior vascular history. No prior cardiac disease. Denies rest pain or claudication. Was admitted with left lower extremity cellulitis in the setting of nonhealing wound for more than 2 years. Had previously underwent surgical amputation of left fifth digit which per patient has never healed. Second toe on right foot also post amputation but healed without issue. Underwent uncomplicated left BKA with Dr. Carson 11/15/2022 for DFU with osteomyelitis and significant tissue loss. Arterial duplex 11/13/2022triphasic DENTAL PRACTICE MANAGER waveforms, mid SFA 50 to 74% stenosis (PSV 337). Distal MALIK (PSV 282), distal LEAD SECTION SUPERVISOR (PSV 362) 50 to 74% stenosis, DPA (PSV 336) Allergies Allergy/AdvReac Type Severity Reaction Status Date / Time Penicillins Allergy Mild Hives Verified 11/13/22 16:48 Home Medications Medication Instructions Recorded Confirmed Type amlodipine 10 mg tablet 10 mg PO DAILY 11/13/22 11/13/22 History atenolol 50 mg tablet 50 mg PO DAILY 11/13/22 11/13/22 History doxazosin 4 mg tablet 8 mg PO HS 11/13/22 11/13/22 History furosemide 40 mg tablet 40 mg PO DAILY 11/13/22 11/13/22 History insulin glargine 100 unit/mL (3 70 unit subcut HS 11/13/22 11/13/22 History mL) subcutaneous pen (Lantus Solostar U-100 Insulin) irbesartan 300 mg tablet 300 mg PO DAILY 11/13/22 11/13/22 History metformin 1,000 mg tablet 1,000 mg PO BID 11/13/22 11/13/22 History minoxidil 2.5 mg tablet 2.5 mg PO BID 11/13/22 11/13/22 History omeprazole 20 mg capsule,delayed 20 mg PO DAILY 11/13/22 11/13/22 History release simvastatin 20 mg tablet 20 mg PO HS 11/13/22 11/13/22 History tamsulosin 0.4 mg capsule 0.8 mg PO DAILY 11/13/22 11/13/22 History Patient History Medical History (Updated 11/20/22 @ 11:13 by Ramo Borden) Anemia BPH (benign prostatic hyperplasia) Diabetes mellitus GERD (gastroesophageal reflux disease) HLD (hyperlipidemia) HTN (hypertension) Obesity PAD (peripheral artery disease) Surgical History History of amputation of toe Hx laparoscopic cholecystectomy Family History Other Family history non-contributory Social History Smoking Status: Never smoker Hx Alcohol Use: Yes Hx Substance Use: Yes Last Used Substance: Hours (ago) Preferred Language: Panamanian Communication Ability: Effective Photography Teacher Required: No Beliefs That Will Affect Care: None Current Living Situation: Alone Feels Safe at Home: Yes Safety Concerns: Feels Safe At This Time Assistive Devices: Cane, Scooter/Electric Scooter and Walker Review of Systems Review of Systems: All systems reviewed & are unremarkable except as noted in HPI & below Physical Exam Physical Exam: General: Comfortable, no acute distress Eyes: Sclerae anicteric Lungs: Clear to auscultation bilaterally, no rhonchi or wheezes Cardiac: Regular rate and rhythm, 2 out of 6 systolic ejection murmur Abdomen: Soft, nontender Neuro: Nonfocal Psych: Alert orient x3, normal affect and mood Extremities/Vascular: -- 2+ radial bilaterally -- 2+ femoral bilaterally -- 1+ popliteal on right -- 2 + DP and PT pulses on left, normal capillary refill -- Right lower extremity, no significant edema, hyperpigmentation, scaling over dorsal aspect of foot -- Left lower extremity post BKA, dressing in place Results & Data ([facility]) Vital Signs (Past 12 Hours) Vital Signs Temp Pulse Resp BP Pulse Ox O2 Del Method 11/20/22 07:30 98.1 F 65 16 177/79 H 94 Room Air PG Care Time/CCT Total # of Minutes Spent Total Time Spent with Patient: Total time spent is greater than 50% in coordination of care (as documented) at patient's floor/unit and/or counseling patient: Coding Level of Care Code 70166 Inpt Consult Level 4 Diagnoses PAD (peripheral artery disease) I73.9
[2022-11-20] MEDS: SENNA 8.6 MG TAB PO SCH (21:58)
[2022-11-20] MEDS: DOXAZosin MESYLATE 4 MG TAB PO SCH (22:01)
--- NOTE | 2022-11-20 22:25 | Hospitalist Progress Note ---
Date of Service November 20, 2022 Assessment & Plan (1) Cellulitis: Plan: LLE. s/p left BKA - 11/15/[address] Carson. POD #5. 3 years of non-healing large left diabetic foot wound after 5th toe amputation. Had a wound vac and multiple rounds of abx over the years. Previous hospitalizations for the LLE were at [facility]. To his knowledge he has never had vascular surgery evaluation of his vasculature. At time of admission here - ESR 80, CRP 16.[address] showed extensive cellulitis with possible osteomyelitis and subcutaneous emphysema. He had exposed bone at the fifth metatarsal and necrotic wound with purulent drainage Wound culture from LLE - Proteus mirabilis, pansensitive; and anaerobes Blood cultures - negative x 5 days IV daptomycin and Zosyn now d/c transitioned to cefdinir BID and flagyl TID for a few more days then d/c appreciate ortho assistance (2) S/P BKA (below knee amputation): Plan: left POD #[address] Carson doing well from surg standpoint some phantom limb pain - started gabapentin 100 TID titrate every 3 days or so as needed (3) Osteomyelitis: Plan: LLE - see #1 above (4) Anemia: Plan: Fe studies showed iron deficiency with transferrin saturation low at 10%, ferritin elevated but likely as acute phase reactant s/p IV Venofer 300mg IV daily x 3 days this admission B12 def detected - level is about 150 - started supplementation folate wnl repeat H/H stable Patient does have positive stool. consult GI. (5) Diabetes mellitus: Plan: Patient's home regimen held on admission Cont Lantus, sliding-scale novolog BSGs remain acceptable HgbA1C 6.9% can likely resume metformin at this time (6) HTN (hypertension): Plan: Continue amlodipine 10mg QDay, atenolol 50mg QDay, minoxidil 2.5mg BID, doxazosin/flomax (uncertain why is on 2 alpha blockers) ARB (irbesartan) resumed -- 150mg BID Resume lasix today follow response (7) HLD (hyperlipidemia): Plan: would use lipitor in jeremiah of simvastatin due to better quality evidence for PAD, etc thus, start lipitor 40mg daily today (8) GERD (gastroesophageal reflux disease): Plan: Continue PPI (9) BPH (benign prostatic hyperplasia): Plan: Continue home doxazosin 8mg HS, and tamsulosin 0.8mg QD. Again uncertain why he is on 2 alpha blockers (10) PAD (peripheral artery disease): Plan: LLE seen on arterial duplex study earlier in admission significant stenoses and monophasic wafeforms seen throughout will formally consult Dr Hernandez, cardiology/vascular, to ensure that his arterial supply in the LLE is adequate enough to allow optimal stump healing. Vascular states no workup required. cont aspirin resumed statin (11) B12 deficiency: Plan: b12 level 151 replace - B12 1000mcg daily x 1 year (12) Morbid obesity with BMI of 40.0-44.9, adult: Plan: BMI 40 Plan DVT proph - aspirin 81 mg twice daily dispo - rehab - [facility] in [place] Admission and Anticipated Discharge Date Admission Date: November 13, 2022 Subjective 67 yo male reports feeling well. He has no new complaints. Review of Systems Review of Systems: All systems reviewed & are unremarkable except as noted in HPI & below Physical Exam Physical Exam: gen - morbidly obese, NAD, pleasant mouth - MMM neck - no JVD heart - RRR, s1 s2 lungs - CTA b/l abd - distended, BS+, NT ext - left BKA; dressings intact; I did not remove the dressings; right leg without edema; pulses right foot 1-2+ psych - a/o x 3 Results & Data Results & Data ([facility]) Vital Signs (Past 12 Hours) Vital Signs Temp Pulse Pulse Resp BP Pulse Ox O2 Del Method 11/20/22 20:33 36.8 C 61 18 173/76 H 95 Room Air 11/20/22 15:00 36.9 C 63 18 174/78 H 95 Room Air PG Care Time/CCT Total # of Minutes Spent Total Time Spent with Patient: Total time spent is greater than 50% in coordination of care (as documented) at patient's floor/unit and/or counseling patient: Coding Level of Care Code 22942 Subseq Hosp Care Lvl 2 Diagnoses Cellulitis L03.116 Laterality: left Site of cellulitis: extremity Site of cellulitis of extremity: lower extremity S/P BKA (below knee amputation) Z89.519 Osteomyelitis M86.9 Laterality: left Osteomyelitis location: foot Osteomyelitis type: unspecified type Anemia D64.9 Anemia type: unspecified type Diabetes mellitus E11.9 HTN (hypertension) I10 HLD (hyperlipidemia) E78.5 GERD (gastroesophageal reflux disease) K21.9 BPH (benign prostatic hyperplasia) N40.0 PAD (peripheral artery disease) I73.9 B12 deficiency E53.8 Morbid obesity with BMI of 40.0-44.9, adult E66.01; Z68.41 (1) Anemia Anemia type: unspecified type Qualified Code(s): D64.9 - Anemia, unspecified (2) Cellulitis Laterality: left Site of cellulitis: extremity Site of cellulitis of extremity: lower extremity Qualified Code(s): L03.116 - Cellulitis of left lower limb (3) Osteomyelitis Laterality: left Osteomyelitis location: foot Osteomyelitis type: unspecified type Qualified Code(s): M86.9 - Osteomyelitis, unspecified
[2022-11-21] MEDS: ACETAMINOPHEN 500 MG TAB PO SCH ×3 (06:38→21:41)
[2022-11-21] MEDS: ASPIRIN 81 MG ECTAB PO SCH ×2 (08:34→21:41)
[2022-11-21] MEDS: PANTOprazole 40 MG TAB PO SCH ×2 (08:34→21:40)
[2022-11-21] MEDS: ASCORBIC ACID 500 MG TAB PO SCH ×2 (08:34→17:48)
[2022-11-21] MEDS: MULTIVITAMIN TAB PO SCH (08:35)
[2022-11-21] MEDS: ATENOLOL 50 MG TABLET PO SCH (08:35)
[2022-11-21] MEDS: CYANOCOBALAMIN (B-12) 500 MCG TABLET PO SCH (08:35)
[2022-11-21] MEDS: GABAPENTIN 100 MG CAP PO SCH ×3 (08:36→21:40)
[2022-11-21] MEDS: minoxidiL 2.5 MG TAB PO SCH ×2 (08:36→21:41)
[2022-11-21] MEDS: IRBESARTAN 150 MG TAB PO SCH ×2 (08:36→21:40)
[2022-11-21] MEDS: amLODIPine BESYLATE 5 MG TAB PO SCH (08:37)
[2022-11-21] MEDS: ATORVASTATIN 40 MG TAB PO SCH (08:37)
[2022-11-21] MEDS: DOCUSATE SODIUM 100 MG CAP PO SCH ×2 (08:38→21:39)
[2022-11-21] MEDS: FUROSEMIDE 20 MG TAB PO SCH (08:38)
[2022-11-21] MEDS: TAMSULOSIN HCL 0.4 MG CAP PO SCH (08:38)
[2022-11-21] MEDS: INSULIN ASPART PER UNIT SC SCH ×4 (08:46→22:04)
[2022-11-21] MEDS: LANTUS PER UNIT CHARGE SQ SCH ×2 (08:46→22:05)
[2022-11-21 09:46] LABS: Hematocrit (blood only) 27.7 % (40.1-51.0); Mean Corpuscular Hemoglobin 27.5 pg (25.0-34.0); Mean Corpuscular Hgb Conc 32.5 g/dL (32.0-36.0); Mean Corpuscular Volume 84.7 fL (80.0-100.0); Platelet Count 273 K/uL (130-400); Red Blood Count 3.27 M/uL (4.63-6.08)
[2022-11-21 10:08] LABS: BUN Creatinine Ratio 22.2 (10-20); Calcium 8.2 mg/dl (8.5-10.1); Creatinine Clr Calc Pharmacy 109.6 ml/min; Est GFR (Non-African American) 78.5 ml/min; Potassium 4.1 mmol/L (3.5-5.1)
--- NOTE | 2022-11-21 10:08 | Gastrointestinal Consultation ---
Date of Consultation November 21, 2022 Assessment & Plan (1) Heme positive stool: Plan Patient's H&H is trending upward and he is not having any overt GIB symptoms, favoring against any brisk bleed. 1)Increase Pantoprazole to 40 mg BID. 2)Avoid NSAIDs. 3)Outpatient EGD once acute issues are resolved if clinically indicated. Thank you for allowing us to participate in the care of this pleasant patient. If you have any questions or concerns, please do not hesitate to contact us. History of Present Illness Reason for Consultation: Heme positive stool Requesting Physician: Dr. Marcus Attending Physician: Cain Marcus History of Present Illness Patient is a 67 y.o. male with a history of DM2 with neuropathy, HTN, BPH, hyperlipidemia, obesity and osteomyelitis s/p BKA being referred for GI evaluation of heme positive stool. The patient reports that he has not had any overt GIB symptoms. States he was told that he had blood in stool in the past and had undergone a diagnostic colonoscopy with findings only of hemorrhoids as the likely source of bleeding. The colonoscopy was reportedly done in [place], [place] but no record is available to review in this regard. Additionally, he denies any abdominal pain, constipation, n/v or hematemesis. States stools have been loose r/t being prescribed stool softeners. H&H has remained relatively stable postoperatively and was noted to be 9.0/27.7 up from yesterday of 8.6/26.1. Remains on once daily PPI. Allergies Allergy/AdvReac Type Severity Reaction Status Date / Time Penicillins Allergy Mild Hives Verified 11/13/22 16:48 Home Medications Medication Instructions Recorded Confirmed Type amlodipine 10 mg tablet 10 mg PO DAILY 11/13/22 11/13/22 History atenolol 50 mg tablet 50 mg PO DAILY 11/13/22 11/13/22 History doxazosin 4 mg tablet 8 mg PO HS 11/13/22 11/13/22 History furosemide 40 mg tablet 40 mg PO DAILY 11/13/22 11/13/22 History insulin glargine 100 unit/mL (3 70 unit subcut HS 11/13/22 11/13/22 History mL) subcutaneous pen (Lantus Solostar U-100 Insulin) irbesartan 300 mg tablet 300 mg PO DAILY 11/13/22 11/13/22 History metformin 1,000 mg tablet 1,000 mg PO BID 11/13/22 11/13/22 History minoxidil 2.5 mg tablet 2.5 mg PO BID 11/13/22 11/13/22 History omeprazole 20 mg capsule,delayed 20 mg PO DAILY 11/13/22 11/13/22 History release simvastatin 20 mg tablet 20 mg PO HS 11/13/22 11/13/22 History tamsulosin 0.4 mg capsule 0.8 mg PO DAILY 11/13/22 11/13/22 History Patient History Medical History Anemia BPH (benign prostatic hyperplasia) Diabetes mellitus GERD (gastroesophageal reflux disease) HLD (hyperlipidemia) HTN (hypertension) Obesity PAD (peripheral artery disease) Surgical History History of amputation of toe Hx laparoscopic cholecystectomy Family History Other Family history non-contributory Social History Smoking Status: Never smoker Hx Alcohol Use: Yes Hx Substance Use: Yes Last Used Substance: Hours (ago) Preferred Language: German Communication Ability: Effective Lead Sharepoint Developer Required: No Beliefs That Will Affect Care: None Current Living Situation: Alone Feels Safe at Home: Yes Safety Concerns: Feels Safe At This Time Assistive Devices: Cane, Scooter/Electric Scooter and Walker Review of Systems Constitutional: as per Subjective / HPI; no fever and no chills Respiratory: no problem reported Cardiovascular: no problem reported Gastrointestinal: as per Subjective / HPI Musculoskeletal: as per Subjective / HPI Physical Exam Constitutional: WD/WN, vitals as above Eyes: + anicteric sclerae and EOM intact bilaterally Neck: normal visual inspection Respiratory: normal respiratory effort, lungs clear to auscultation Cardiovascular: Rate/Rhythm: regular rate and regular rhythm Heart Sounds: + murmur Gastrointestinal (Abdomen): Inspection/Auscultation: + significant pannus Percussion/Palpation: abdomen soft; abdomen nontender Musculoskeletal: Extremities: + lower leg abnormality Left (Bandage of the knee. C/D/I) Psychiatric: A+Ox3, euthymic affect Results & Data ([facility]) Vital Signs (Past 12 Hours) Vital Signs Temp Pulse Resp BP Pulse Ox O2 Del Method 11/21/22 07:30 36.8 C 59 L 18 175/74 H 94 Room Air Diagnostic Findings Laboratory Results WBC 9.10 K/ul (4.8-10.8) 11/21/22 09:18 RBC 3.27 M/uL (4.63-6.08) L 11/21/22 09:18 Hgb 9.0 g/dl (14.0-18.0) L 11/21/22 09:18 Hct 27.7 % (40.1-51.0) L 11/21/22 09:18 MCV 84.7 fL (80.0-100.0) 11/21/22 09:18 MCH 27.5 pg (25.0-34.0) 11/21/22 09:18 MCHC 32.5 g/dL (32.0-36.0) 11/21/22 09:18 RDW Std Deviation 42.0 fL (36.4-46.3) 11/21/22 09:18 RDW Coeff of Fauzia 14.0 % (11.5-14.5) 11/21/22 09:18 Plt Count 273 K/uL (130-400) 11/21/22 09:18 MPV 9.0 fL (9.4-12.4) L 11/21/22 09:18 Immature Gran % (Auto) 0.4 % 11/15/22 08:14 Neut % (Auto) 68.8 % 11/15/22 08:14 Lymph % (Auto) 12.8 % 11/15/22 08:14 [place] % (Auto) 10.7 % 11/15/22 08:14 Eos % (Auto) 6.7 % 11/15/22 08:14 Baso % (Auto) 0.6 % 11/15/22 08:14 Neut # (Auto) 6.14 K/uL (1.4-6.5) 11/15/22 08:14 Lymph # (Auto) 1.14 K/uL (1.2-3.4) L 11/15/22 08:14 [place] # (Auto) 0.95 K/uL (0.24-0.82) H 11/15/22 08:14 Eos # (Auto) 0.60 K/uL (0-0.50) H 11/15/22 08:14 Baso # (Auto) 0.05 K/uL (0-0.2) 11/15/22 08:14 Immature Gran # (Auto) 0.04 K/uL (0.00-0.02) H 11/15/22 08:14 ESR 79 mm/hr (0-20) H 11/16/22 07:06 PT 11.1 Seconds (9.0-12.0) 11/13/22 17:15 INR 1.0 (0.9-1.1) 11/13/22 17:15 APTT 22.7 Seconds (21.0-31.0) 11/13/22 17:15 PTT Ratio 0.8 11/13/22 17:15 Sodium 140 mmol/L (136-145) 11/21/22 09:18 Potassium 4.1 mmol/L (3.5-5.1) 11/21/22 09:18 Chloride 109 mmol/L (98-107) H 11/21/22 09:18 Carbon Dioxide 26 mmol/L (21-32) 11/21/22 09:18 Anion Gap 5 (3-11) 11/21/22 09:18 BUN 22 mg/dl (6-23) 11/21/22 09:18 Creatinine 0.99 mg/dl (0.6-1.4) 11/21/22 09:18 Est Cr Clr Drug Dosing 109.6 ml/min 11/21/22 09:18 Est GFR ( Amer) 91.0 ml/min 11/21/22 09:18 Est GFR (Non-Af Amer) 78.5 ml/min 11/21/22 09:18 BUN/Creatinine Ratio 22.2 (10-20) H 11/21/22 09:18 Glucose 163 mg/dl (70-99(Fasting)) H 11/21/22 09:18 POC Glucose 120 mg/dl (70-99) H 11/21/22 08:28 Estimat Average Glucose 151 mg/dl 11/14/22 09:41 Hemoglobin A1c 6.9 % (4.5-5.6) H 11/14/22 09:41 Lactate 1.4 mmol/L (0.4-2.0) 11/13/22 17:15 Calcium 8.2 mg/dl (8.5-10.1) L 11/21/22 09:18 Magnesium 1.9 mg/dl (1.7-2.4) 11/13/22 17:15 Iron 16 mcg/dl (35-175) L 11/14/22 09:41 TIBC 161 mcg/dl (250-450) L 11/14/22 09:41 Unsaturated IBC 145 mcg/dl (155-355) L 11/14/22 09:41 Transferrin % Sat 10 % (20-50) L 11/14/22 09:41 Ferritin 198.1 ng/ml (8-388) 11/14/22 09:41 Total Bilirubin 1.1 mg/dl (0.2-1.0) H 11/15/22 08:14 Direct Bilirubin 0.3 mg/dl (0-0.2) H 11/13/22 17:15 AST 18 U/L (13-39) 11/15/22 08:14 ALT 15 U/L (7-52) 11/15/22 08:14 Alkaline Phosphatase 82 U/L (34-104) 11/15/22 08:14 Total Creatine Kinase 260 U/L (30-223) H 11/15/22 08:14 Troponin I High Sens 5.8 pg/ml (0-20) 11/13/22 17:15 C-Reactive Protein 11.63 mg/dl (0-0.5) H 11/16/22 07:06 Total Protein 6.6 gm/dl (6.0-8.3) 11/15/22 08:14 Albumin 3.0 gm/dl (3.4-5.0) L 11/15/22 08:14 Globulin 3.6 gm/dl (2.5-4.0) 11/15/22 08:14 Albumin/Globulin Ratio 0.8 (0.9-2) L 11/15/22 08:14 Vitamin B12 151 pg/ml (180-914) L 11/17/22 07:04 Folate 16.98 ng/ml (>5.38) 11/17/22 07:04 Procalcitonin 0.17 ng/ml (0-0.5) 11/13/22 17:15 Urine Color Yellow 11/14/22 Unknown Urine Appearance Clear (Clear) 11/14/22 Unknown Urine pH 5.5 (4.5-7.5) 11/14/22 Unknown Ur Specific [place] 1.015 (1.000-1.030) 11/14/22 Unknown Urine Protein 3+ (Negative) H 11/14/22 Unknown Urine Glucose (UA) Negative (Negative) 11/14/22 Unknown Urine Ketones Negative (Negative) 11/14/22 Unknown Urine Blood 2+ (Negative) H 11/14/22 Unknown Urine Nitrite Negative (Negative) 11/14/22 Unknown Urine Bilirubin Negative (Negative) 11/14/22 Unknown Urine Urobilinogen Negative (Negative) 11/14/22 Unknown Ur Leukocyte Esterase Negative (Negative) 11/14/22 Unknown Urine WBC (Auto) 1-5 /hpf (0-5) 11/14/22 Unknown Urine RBC (Auto) 5-10 /hpf (0-4) H 11/14/22 Unknown U Hyaline Cast (Auto) 1-5 /lpf (0-5) 11/14/22 Unknown U Epithel Cells (Auto) 5-10 /lpf (0-5) H 11/14/22 Unknown Urine Bacteria (Auto) Negative (Negative) 11/14/22 Unknown Stool Occult Bld Scrn Positive (Negative) A 11/20/22 09:50 Hepatitis C Ab (EIA) NON-REACTIVE (NON-REACTIVE) 11/14/22 09:41 Hep C Ab Signal/Cutoff 0.08 (<1.00) 11/14/22 09:41 SARS-CoV-2, RNA, NAAT NEGATIVE (NEGATIVE) 11/13/22 17:15 Blood Type A Positive 11/14/22 17:51 Antibody Screen NEGATIVE 11/14/22 17:[address] 11/13/22 16:39 CT foot LT wo con CLINICAL HISTORY: osteomyelitis TECHNIQUE: Multidetector row helical CT of the left foot was performed without intravenous contrast. Coronal and sagittal reformations were obtained. Automated dose lowering techniques and/or adjustment according to patient size were utilized for this examination. CT DOSE: 211.06 mGy.cm Comparison: None available at the time of this dictation. FINDINGS: Extensive soft tissue swelling and subcutaneous emphysema is seen with an ulcer in the lateral soft tissues of the foot. There is exposed bone at the level of the fifth metatarsal which has been partially resected. Subcutaneous emphysema is seen. Extensive degenerative changes are seen with fragmentation of the fifth metatarsal IMPRESSION: Extensive degenerative changes and postsurgical changes of fifth metatarsal partial resection. There is fragmentation of the remaining portion of the fifth metatarsal. This may be seen in osteomyelitis although there is no focal erosion. Extensive cellulitis and ulcer to the level of the bone in the lateral foot. Subcutaneous emphysema. ACT 112: Negative or not required by law. Electronically signed by: Swapnil Proctor M.D. 11/13/2022 6:09 PM Chest X-Ray 11/13/22 16:40 XR chest 1V portable CLINICAL HISTORY: Sepsis TECHNIQUE: Single frontal radiograph of the chest was obtained. Comparison: None available at the time of this dictation. FINDINGS: No lines and tubes are seen. The cardiomediastinal silhouette is normal. The lungs are clear. No evidence of pleural effusion or pneumothorax. IMPRESSION: No acute abnormalities and in particular no evidence of pneumonia. ACT 112: Negative or not required by law. Electronically signed by: Swapnil Proctor M.D. 11/13/2022 4:56 PM Venous Doppler Study 11/13/22 17:07 US venous doppler LE LT CLINICAL HISTORY: swelling TECHNIQUE: Left lower extremity real-time compression venous ultrasound with Color Doppler imaging. Utilizing real-time ultrasonic imaging multiple real time high-resolution ultrasonic images with compression and noncompression maneuvers of the deep venous system in addition to color doppler imaging were performed from the common femoral vein through the proximal calf veins. COMPARISON: Comparison is made to CT left foot 11/13/2022 FINDINGS: Currently there is normal compressibility of the deep venous system from the common femoral vein through the proximal calf veins. Evaluation of the calf veins is limited by overlying soft tissue swelling. Impression: No evidence of deep venous thrombus. ACT 112: Negative or not required by law. Electronically signed by: Swapnil Proctor M.D. 11/13/2022 9:01 PM Duplex Scan Lower Extremity Artery 11/13/22 19:41 US arterial duplex LE LT CLINICAL HISTORY: L foot cellulitis with osteomyelitis TECHNIQUE: Real-time grayscale and color and spectral Doppler ultrasound imaging of the bilateral lower extremity arteries was performed. Measurements calculated based on NASCET criteria. COMPARISON: None available at the time of this dictation. FINDINGS: LEFT: Common femoral artery: Triphasic waveforms. Peak systolic velocity (PSV) 1 cm/s. Deep femoral artery: Triphasic waveforms. PSV 101 cm/s. Superficial femoral artery: Monophasic waveforms. PSV 337 cm/s. Popliteal artery: Monophasic waveforms. PSV 153 cm/s. Anterior tibial artery: Monophasic waveforms. PSV 282 cm/s. Posterior tibial artery: Monophasic waveforms. PSV 362 cm/s. Peroneal artery: Nonvisualized Dorsalis pedis: Monophasic waveforms. PSV 336 cm/s. Increased velocities are seen throughout the left lower extremity. Monophasic fl ow extends from the mid superficial femoral artery to the calf. The peroneal artery is not visualized due to soft tissue swelling and body habitus. IMPRESSION: Monophasic waveforms and increased velocities are noted in the superficial femoral artery and the arteries of the calf. Soft tissue swelling is seen. The peroneal artery is not visualized. Findings are compatible with hemodynamically significant peripheral artery disease. ACT 112: Negative or not required by law. Electronically signed by: Swapnil Proctor M.D. 11/13/2022 9:05 PM Tibia/Fibula X-Ray 11/14/22 13:44 XR tibia fibula LT 2V CLINICAL HISTORY: assess for osteomyelitis TECHNIQUE: 2 radiographic views of the right leg were obtained. Comparison: None available at the time of this dictation. FINDINGS: No evidence of acute fracture or definite erosions to suggest osteomyelitis. Degenerative changes are seen most prominently in the knee joint. Plantar and Achilles enthesophytes are seen. Soft tissue swelling is seen. IMPRESSION: Soft tissue swelling without radiographic evidence of osteomyelitis. ACT 112: Negative or not required by law. Electronically signed by: Swapnil Proctor M.D. 11/14/2022 2:27 PM PG Care Time/CCT Total # of Minutes Spent Total Time Spent with Patient: Total time spent is greater than 50% in coordination of care (as documented) at patient's floor/unit and/or counseling patient: Coding Level of Care Code 77873 Initial Inpt Care Lvl 3 Diagnoses Heme positive stool R19.5
[2022-11-21] MEDS: DOXAZosin MESYLATE 4 MG TAB PO SCH (21:40)
[2022-11-21] MEDS: SENNA 8.6 MG TAB PO SCH (21:41)
--- NOTE | 2022-11-21 22:17 | Hospitalist Progress Note ---
Date of Service November 21, 2022 Assessment & Plan (1) Cellulitis: Plan: LLE. s/p left BKA - 11/15/[address] Carson. POD #6. 3 years of non-healing large left diabetic foot wound after 5th toe amputation. Had a wound vac and multiple rounds of abx over the years. Previous hospitalizations for the LLE were at [facility]. To his knowledge he has never had vascular surgery evaluation of his vasculature. At time of admission here - ESR 80, CRP 16.[address] showed extensive cellulitis with possible osteomyelitis and subcutaneous emphysema. He had exposed bone at the fifth metatarsal and necrotic wound with purulent drainage Wound culture from LLE - Proteus mirabilis, pansensitive; and anaerobes Blood cultures - negative x 5 days IV daptomycin and Zosyn now d/c transitioned to cefdinir BID and flagyl TID for a few more days then d/c continue unti Nov 26. appreciate ortho assistance (2) S/P BKA (below knee amputation): Plan: left POD #[address] Carson signed off, requires followup as per Dr. Carson's last progress note. doing well from surg standpoint some phantom limb pain - started gabapentin 100 TID (3) Osteomyelitis: Plan: LLE - see #1 above (4) Anemia: Plan: Fe studies showed iron deficiency with transferrin saturation low at 10%, ferritin elevated but likely as acute phase reactant s/p IV Venofer 300mg IV daily x 3 days this admission B12 def detected - level is about 150 - started supplementation folate wnl repeat H/H stable Patient does have positive stool. consult GI. (5) Diabetes mellitus: Plan: Patient's home regimen held on admission Cont Lantus, sliding-scale novolog BSGs remain acceptable HgbA1C 6.9% can likely resume metformin at this time (6) HTN (hypertension): Plan: Continue amlodipine 10mg QDay, atenolol 50mg QDay, minoxidil 2.5mg BID, doxazosin/flomax (uncertain why is on 2 alpha blockers) ARB (irbesartan) resumed -- 150mg BID Resume lasix today follow response (7) HLD (hyperlipidemia): Plan: would use lipitor in jeremiah of simvastatin due to better quality evidence for PAD, etc thus, start lipitor 40mg daily today (8) GERD (gastroesophageal reflux disease): Plan: Continue PPI (9) BPH (benign prostatic hyperplasia): Plan: Continue home doxazosin 8mg HS, and tamsulosin 0.8mg QD. Again uncertain why he is on 2 alpha blockers (10) PAD (peripheral artery disease): Plan: LLE seen on arterial duplex study earlier in admission significant stenoses and monophasic wafeforms seen throughout will formally consult Dr Hernandez, cardiology/vascular, to ensure that his arterial supply in the LLE is adequate enough to allow optimal stump healing. Vascular states no workup required. cont aspirin resumed statin (11) B12 deficiency: Plan: b12 level 151 replace - B12 1000mcg daily x 1 year (12) Morbid obesity with BMI of 40.0-44.9, adult: Plan: BMI 40 Plan DVT proph - aspirin 81 mg twice daily dispo - rehab - [facility] in [place] Admission and Anticipated Discharge Date Admission Date: November 13, 2022 Subjective 67 yo male reports feeling well. He has no new complaints. Review of Systems Review of Systems: All systems reviewed & are unremarkable except as noted in HPI & below Physical Exam Physical Exam: gen - morbidly obese, NAD, pleasant mouth - MMM neck - no JVD heart - RRR, s1 s2 lungs - CTA b/l abd - distended, BS+, NT ext - left BKA; dressings intact; I did not remove the dressings; right leg without edema; pulses right foot 1-2+ psych - a/o x 3 Results & Data Results & Data ([facility]) Vital Signs (Past 12 Hours) Vital Signs Temp Pulse Pulse Resp BP Pulse Ox O2 Del Method 11/21/22 21:03 37.3 C 57 L 18 176/76 H 94 Room Air 11/21/22 16:30 36.8 C 59 L 18 169/76 H 95 Room Air PG Care Time/CCT Total # of Minutes Spent Total Time Spent with Patient: Total time spent is greater than 50% in coordination of care (as documented) at patient's floor/unit and/or counseling patient: Coding Level of Care Code 62292 Subseq Hosp Care Lvl 2 Diagnoses Cellulitis L03.116 Laterality: left Site of cellulitis: extremity Site of cellulitis of extremity: lower extremity S/P BKA (below knee amputation) Z89.519 Osteomyelitis M86.9 Laterality: left Osteomyelitis location: foot Osteomyelitis type: unspecified type Anemia D64.9 Anemia type: unspecified type Diabetes mellitus E11.9 HTN (hypertension) I10 HLD (hyperlipidemia) E78.5 GERD (gastroesophageal reflux disease) K21.9 BPH (benign prostatic hyperplasia) N40.0 PAD (peripheral artery disease) I73.9 B12 deficiency E53.8 Morbid obesity with BMI of 40.0-44.9, adult E66.01; Z68.41 (1) Anemia Anemia type: unspecified type Qualified Code(s): D64.9 - Anemia, unspecified (2) Cellulitis Laterality: left Site of cellulitis: extremity Site of cellulitis of extremity: lower extremity Qualified Code(s): L03.116 - Cellulitis of left lower limb (3) Osteomyelitis Laterality: left Osteomyelitis location: foot Osteomyelitis type: unspecified type Qualified Code(s): M86.9 - Osteomyelitis, unspecified
[2022-11-22] MEDS: ACETAMINOPHEN 500 MG TAB PO SCH (06:08)
[2022-11-22] MEDS: ATENOLOL 50 MG TABLET PO SCH (08:58)
[2022-11-22] MEDS: PANTOprazole 40 MG TAB PO SCH (08:58)
[2022-11-22] MEDS: ASCORBIC ACID 500 MG TAB PO SCH (08:58)
[2022-11-22] MEDS: ATORVASTATIN 40 MG TAB PO SCH (08:58)
[2022-11-22] MEDS: minoxidiL 2.5 MG TAB PO SCH (08:58)
[2022-11-22] MEDS: ASPIRIN 81 MG ECTAB PO SCH (08:58)
[2022-11-22] MEDS: MULTIVITAMIN TAB PO SCH (08:58)
[2022-11-22] MEDS: CYANOCOBALAMIN (B-12) 500 MCG TABLET PO SCH (08:58)
[2022-11-22] MEDS: IRBESARTAN 150 MG TAB PO SCH (08:59)
[2022-11-22] MEDS: TAMSULOSIN HCL 0.4 MG CAP PO SCH (08:59)
[2022-11-22] MEDS: GABAPENTIN 100 MG CAP PO SCH (08:59)
[2022-11-22] MEDS: DOCUSATE SODIUM 100 MG CAP PO SCH (08:59)
[2022-11-22] MEDS: amLODIPine BESYLATE 5 MG TAB PO SCH (09:00)
[2022-11-22] MEDS: FUROSEMIDE 20 MG TAB PO SCH (09:00)
[2022-11-22] MEDS: INSULIN ASPART PER UNIT SC SCH (09:01)
[2022-11-22] MEDS: LANTUS PER UNIT CHARGE SQ SCH (09:01)
--- NOTE | 2022-11-22 11:02 | Discharge Summary ---
Date of Service November 22, 2022 Admission HPI Per Admitting Provider Patient is a 67 y/o male who presents to the hospital with L LE wound. He has been following with [facility] in [place] with wound care about this for the past 3 years since his L fifth toe was amputated due to poorly controlled diabetes. He was on a wound VAC 2 weeks ago. He states over the past week the wound has gotten worse and has become painful and increase in drainage. the pain is worse when ambulating. He denies any antibiotic use for the past year. He denies any fevers, chills, vomiting, or ab pain. He does state that he had a little bit of nausea today for the first time. PMHx: DM2, HTN, HLD, GERD, BPH PSx: Gallbladder removed, L fifth toe amputated (2018?), R toe amputated (2019?) All: penicillin (hives)- doesn't remember them, was younger in the ED: CXR negative, L foot CT showed extensive cellulitis with possible osteomyelitis and subcutaneous emphysema. CBC showed a leukocytics of 14, hgb 9.9, 83 MCV. CMP unremarkable. Normal procal, troponin, Mg, and PT/INR. Wound and blood cultures pending. Principal Diagnosis Diabetic left foot ulcer with associated left foot osteomyelitis, status post left below the knee amputation Discharge Exam General-alert and oriented x3, no fevers, no chills HEENT-head atraumatic and normocephalic, pupils equal and reactive to light, extraocular muscles intact Neck-no lymphadenopathy or thyromegaly, trachea midline Chest-clear to auscultation percussion. No rales wheezing or rhonchi Cardiac-regular rate and rhythm, normal S1 and S2 Abdomen-normal bowel sounds, nontender, no hepatosplenomegaly Extremities-left BKA site is heavily wrapped postoperatively. Neuro-cranial nerves II through XII intact, motor and sensory function within normal limits, strength symmetrical , no focal deficits Psych-normal affect, normal mood Discharge Data Allergies Allergy/AdvReac Type Severity Reaction Status Date / Time Penicillins Allergy Mild Hives Verified 11/13/22 16:48 Consultations 11/13/22 18:42 ED Decision to Admit Stat 11/13/22 23:01 Consult Orthopedic Surgery Routine 11/16/22 20:41 Consult Vascular Surgery Routine 11/20/22 11:22 Consult Gastroenterology Routine Procedures Performed Operation Date: 11/15/22 09:30 Actual Procedures p Left Below Knee Amputation(Left) - Hill Carson MD Ordered Studies 11/13/22 16:39 CT foot LT wo con Stat 11/13/22 17:07 US venous doppler LE LT Stat 11/13/22 19:41 US arterial duplex LE LT Stat Hospital Course (1) Cellulitis: LLE. s/p left BKA - 11/15/[address] Carson[address] POD #7. 3 years of non-healing large left diabetic foot wound after 5th toe amputation. Had a wound vac and multiple rounds of abx over the years. [facility] To his knowledge he has never had vascular surgery evaluation of his vasculature. At time of admission here - ESR 80, CRP 16.[address] showed extensive cellulitis with possible osteomyelitis and subcutaneous emphysema. He had exposed bone at the fifth metatarsal and necrotic wound with purulent drainage Wound culture from LLE - Proteus mirabilis, pansensitive; and anaerobes Blood cultures - negative Treated with IV daptomycin and Zosyn now d/c transitioned to cefdinir BID and flagyl TID for a few more days then these were also discontinued appreciate ortho assistance (2) S/P BKA (below knee amputation): left POD #[address] Carson signed off, requires followup as per Dr. Carson's last progress note. doing well from surg standpoint some phantom limb pain - started gabapentin 100 TID (3) Osteomyelitis: LLE - see #1 above (4) Anemia: Fe studies showed iron deficiency with transferrin saturation low at 10%, ferritin elevated but likely as acute phase reactant s/p IV Venofer 300mg IV daily x 3 days this admission B12 def detected - level is about 150 - started supplementation folate wnl repeat H/H stable Patient does have positive stool. GI consult appreciated. He needs outpatient GI follow-up and probably endoscopy at some point. (5) Diabetes mellitus: Patient's home regimen held on admission but restarted at discharge. ADA diet. HgbA1C 6.9% (6) HTN (hypertension): Continue amlodipine 10mg QDay, atenolol 50mg QDay, doxxazosin. Minoxidil discontinued due to unavailability at [facility]. ARB (irbesartan) has been resumed -- 150mg BID (7) HLD (hyperlipidemia): Continue statin therapy. Low-cholesterol diet. (8) GERD (gastroesophageal reflux disease): Continue PPI (9) BPH (benign prostatic hyperplasia): Continue home doxazosin 8mg HS, and tamsulosin 0.8mg QD. (10) PAD (peripheral artery disease): LLE. Seen on arterial duplex study earlier in admission. Treated with aspirin and statin therapy (11) B12 deficiency: b12 level 151. Replace - B12 1000mcg daily x 1 year (12) Morbid obesity with BMI of 40.0-44.9, adult: BMI 40. Weight loss highly recommended Plan DVT proph - aspirin 81 mg twice daily dispo - rehab - [facility] in [place] today, November 22 Total Time Total Time Spent Total Time Spent (In Minutes): 35 minutes Discharge Plan Discharge Items Patient Disposition: Transfer Inpatient Rehab Fac Reason For Visit: CELLULITIS WITH OSTEOMYELITIS Discharge Diagnosis: Left Below Knee Amputation Condition on Discharge: Fair Activity: Resume your previous activity Non-emergency contact: Primary Care Provider Call non-emergency contact if: you have any medication questions Follow-up/Referrals: Hill Carson MD [Physician] - (Orthopedic follow-up 2.5-3 weeks from surgery date) Abril Ayers DO [Primary Care Provider] - Diet: Carb Consistent or DM2 and Heart Healthy Addtl Attending Provider Instructions: Keep left leg dressing/bandage clean, dry, and in place until return orthopedic follow-up in 2.5-3 weeks. Pending Studies at Discharge: No Stand-Alone Forms: My [facility] Skilled Items Patient informed of condition?: Yes DNR: No Discharge Level of Care: Acute rehab Communicable Disease: No Discharge Prognosis: Stable Lines: None Urinary Catheter: No Medications and DC Order Prescriptions: New aspirin 81 mg Tablet,Delayed Release (Dr/Ec) 81 mg PO BID Qty: 30 0RF cyanocobalamin (vitamin B-12) 500 mcg Tablet 1,000 mcg PO QAM Qty: 20 0RF ascorbic acid (vitamin C) [Vitamin C] 500 mg Tablet 500 mg PO BIDM Qty: 20 0RF docusate sodium 100 mg Capsule 100 mg PO BID Qty: 20 0RF gabapentin 100 mg Capsule 100 mg PO TID Qty: 30 0RF multivitamin with folic acid [Daily-Kaylyn (with folic acid)] 400 mcg Tablet 1 tab PO QAM Qty: 20 0RF Continued furosemide 40 mg tablet 40 mg PO DAILY tamsulosin 0.4 mg capsule 0.8 mg PO DAILY simvastatin 20 mg tablet 20 mg PO HS metformin 1,000 mg tablet 1,000 mg PO BID atenolol 50 mg tablet 50 mg PO DAILY irbesartan 300 mg tablet 300 mg PO DAILY amlodipine 10 mg tablet 10 mg PO DAILY omeprazole 20 mg capsule,delayed release(DR/EC) 20 mg PO DAILY doxazosin 4 mg tablet 8 mg PO HS insulin glargine [Lantus Solostar U-100 Insulin] 100 unit/mL (3 mL) insulin pen 70 unit SUBCUT HS Discontinued minoxidil 2.5 mg tablet 2.5 mg PO BID Discharge Orders: Discharge Order (Routine); Ordered 11/22/22 Ordered By: Baltazar Crocker Admission Data Admit Date/Time: 11/13/22 19:41 Attending Provider: Baltazar Crocker Admit Provider: Osmel Aleman Primary Care Provider: Abril Ayers Other Providers: Irma Sandra ; Hill Carson ; Estevan Hernandez ; Peña Poole ; Dorian Monge ; Nehal Henry ; Bhumi Stafford ; Chiara Basilio ; Brooke Strong ; Jason Sheridan ; Eugene Nash ; Herson Jefferson ; Luis M Felix ; Irina Ritter ; Shellie Lemons ; Alexandra Ortez ; Ciara Torres ; Katherine Landaverde ; Shashi Bolivar ; Emir Conde SMeme ; Nelly Viera ; Robi Ty Jr Coding Level of Care Code D/C DAY MANAGEMENT >30 MINS Diagnoses Cellulitis L03.116 Laterality: left Site of cellulitis: extremity Site of cellulitis of extremity: lower extremity S/P BKA (below knee amputation) Z89.519 Osteomyelitis M86.9 Laterality: left Osteomyelitis location: foot Osteomyelitis type: unspecified type Anemia D64.9 Anemia type: unspecified type Diabetes mellitus E11.9 HTN (hypertension) I10 HLD (hyperlipidemia) E78.5 GERD (gastroesophageal reflux disease) K21.9 BPH (benign prostatic hyperplasia) N40.0 PAD (peripheral artery disease) I73.9 B12 deficiency E53.8 Morbid obesity with BMI of 40.0-44.9, adult E66.01; Z68.41
== END 2022-11-22 12:17 | DRG 617 ==
LOC: ED 16:19 → SUATTDRO 19:41 → 3W 19:41